=== PATIENT | male | born 1980 | race Caucasian/White ===

== ENCOUNTER → 2018-06-09 | Emergency (ER) | payer BC ==
[~2018-06-09] MED LIST: BUPIVACA 0.25%/EPI 0.0005% MDV 50 ML VIAL ONE; CEFTRIAXONE/SWI 1gm 1 GM/10 ML SYR ONE; FENTANYL CITR 100 MCG/2 ML ONE; GLYCOPYRROLATE 0.2 MG/ML SYR ONE; KETOROLAC 30 MG/ML INJ ONE; METRONIDAZOLE 500mg IVPB 500 MG/100 ML BAG IV ONE; MIDAZOLAM HCL 2 MG/2 ML INJ ONE; MORPHINE 4 MG/ML SYR ONE; NA CHLORIDE 0.9% 1,000 ML ONE; NEOSTIGMINE 1 MG/ML -5 ML SYRINGE ONE; ONDANSETRON 4 MG/2 ML VIAL ONE; PROPOFOL 200 MG/20 ML VIAL IV ONE; ROCURONIUM 50 MG/5 ML VIAL IV ONE; Ringers Lactate 1,000 ML IV ONE; SUCCINYLCHOLINE 20 MG/ML (10 ML) IV ONE
--- OUTSIDE RECORDS SUMMARY | 2018-06-09 10:04 | XMS REPORT ---
:1980 Author Organization e[employer]Works Care Team Providers Name Role Phone Brown, Na Provider Role Unavailable Allergies, Adverse Reactions, Alerts Substance Reaction Event Type N.K.D.A. Info Not Available Non Drug Allergy Problems Problem Type Condition Code Onset Dates Condition Status Assessment Anxiety F41.9 Active Assessment HTN (hypertension) I10 Active Assessment Acute gingival inflammation K05.00 Active Assessment Pure hypercholesterolemia E78.00 Active Problem Allergic rhinitis J30.9 Active Problem Anxiety F41.9 Active Problem Acute gingival inflammation K05.00 Active Problem Plantar fasciitis M72.2 Active Problem Pure hypercholesterolemia E78.00 Active Problem Vitamin D deficiency E55.9 Active Problem HTN (hypertension) I10 Active Medications Medication Code Code Instructions Start End Status Dosage System Date Date Zyrtec Allergy [facility] 71920588760 10 MG Orally Active 1 tablet Once a day ProAir HFA [facility] 27885085215 108 (90 Base) Active 2 puffs as MCG/ACT needed Inhalation every 6 hrs Citalopram [facility] 91475981025 20 MG Orally Active 1 tablet Hydrobromide Once a day Simvastatin ND 95065481454 20 MG Orally Active 1 tablet Once a day in the evening Lisinopril [facility] 26092583695 10 MG Orally Active 1 tablet Once a day Amoxicillin [facility] 37980496449 500 MG Orally Feb 04, Feb 14, Active 1 capsule every 12 hrs 2017 2017 Results No Known Results Summary Purpose eClinicalWorks Submission
[2018-06-09 10:48] LABS: Absolute Lymphocytes (CBC) 1.6 K/uL (0.7-4.9); Absolute Monocytes 0.8 K/uL (0.1-1.3); Absolute Neutrophil 9.2 K/uL (1.8-8.0); Basophils % 0.4 % (0-1.3); Eosinophils % 1.5 % (0-4.4); Hematocrit 41.6 % (39.6-49.0); Lymphocytes % 13.8 % (15.3-44.8); MPV 7.2 fL (7.6-11.3); Monocytes % 7.1 % (3.3-12.3); RBC Red Blood Cell Count 4.81 M/uL (4.33-5.43)
[2018-06-09 11:02] LABS: Bilirubin Direct 0.2 mg/dL (0-0.2); Bilirubin Total 0.8 mg/dL (0.2-1.0); Potassium 3.8 mmol/L (3.5-5.1); Protein, Total 7.6 g/dL (6.4-8.2)
--- NOTE | 2018-06-09 11:30 | RAD REPORT ---
EXAM DESCRIPTION: CT - Abdomen Pelvis W Contrast - 06/09/2018 11:14 am CLINICAL HISTORY: Lower abdominal pain, chills, possible appendicitis COMPARISON: July 2012 TECHNIQUE: Biphasic, helical CT imaging of the abdomen and pelvis was performed following 100 ml non -ionic IV contrast. Oral contrast was given. All CT scans are performed using dose optimization technique as appropriate and may include automated exposure control or mA/KV adjustment according to patient size. FINDINGS: No suspicious findings in the lung bases. The liver, spleen, and pancreas show no suspicious findings. Gallbladder and biliary tree are also wi thout suspicious finding. Liver attenuation borders on fatty infiltration. Symmetric renal function is seen with no hydronephrosis or suspicious renal mass. No pyelonephritis o r acute parenchymal process. No bladder abnormalities. No adrenal abnormalities. No gastric dilatation or gastric wall thickening. No small bowel abnormality. Moderate stool volume i s present throughout the colon. The appendix is abnormal at 11-12 mm in size. There is periappendiceal inflammatory stranding. A few small reactive lymph nodes are present in the right lower quadrant. No appendicolith. No abscess, isaiah e air or other complicating factor. The appendix is partially retrocecal. No free air, free fluid or inflammatory stranding. No mass or bulky lymphadenopathy. Patient has a very small umbilical hernia. No suspicious bony findings. Findings telephoned to the referring clinician 11:26 a.m. IMPRESSION: Acute appendicitis. The appendix is partially retrocecal. No abscess, free air or other complicating factor.
--- NOTE | 2018-06-09 11:31 | ER ---
Nurse's Notes [facility] Name: Selvin Burks Age: 37 yrs Sex: Male : 1980 Arrival Date: 06/09/2018 Time: 10:05 Bed 25 Private MD: Diagnosis: Acute appendicitis Presentation: 06/09 10:16 Presenting complaint: Patient states: lower abd pain and chills that began yesterday. aa5 Pt denies nausea, vomiting, and diarrhea. Pt reports being sent here by urgent care to r/o appendicitis. Transition of care: patient was not received from another setting of care. Onset of symptoms was May 2018. Risk Assessment: Do you want to hurt yourself or someone else? Patient reports no desire to harm self or others. Initial Sepsis Screen: Does the patient meet any 2 criteria? No. Patient's initial sepsis screen is negative. Does the patient have a suspected source of infection? No. Patient's initial sepsis screen is negative. Care prior to arrival: None. 10:16 Method Of Arrival: Ambulatory aa5 10:16 Acuity: CORIE 3 aa5 Historical: - Allergies: 10:18 NKA; aa5 - Home Meds: 10:18 citalopram 20 mg tab 1 tab once daily [Active]; lisinopril 10 mg Oral tab once daily aa5 [Active]; simvastatin 20 mg Oral tab 1 tab once daily [Active]; - PMHx: 10:18 Anxiety; Depression; Hyperlipidemia; Hypertension; aa5 - PSHx: 10:18 None; aa5 - Immunization history:: Flu vaccine is not up to date. - Social history:: Smoking status: Patient/guardian denies using tobacco, Patient/guardian denies using alcohol, street drugs, The patient lives with family. - Ebola Screening: : No symptoms or risks identified at this time. - Family history:: not pertinent. Screenin:25 Abuse screen: Denies threats or abuse. Denies injuries from another. Nutritional aj screening: No deficits noted. Tuberculosis screening: No symptoms or risk factors identified. Fall Risk None identified. Assessment: 11:25 General: Appears in no apparent distress. uncomfortable, Behavior is calm, cooperative, aj appropriate for age. Pain: Complains of pain in right lower quadrant. Neuro: Level of Consciousness is awake, alert, obeys commands, Oriented to person, place, time, situation, Appropriate for age. Respiratory: Airway is patent Respiratory effort is even, unlabored, Respiratory pattern is regular, symmetrical. GI: Abdomen is flat, non-distended, Bowel sounds present X 4 quads. Abdomen is tender to palpation in right lower quadrant. Derm: Skin is intact, is healthy with good turgor, Skin is pink, warm \T\ dry. normal. Vital Signs: 10:18 BP 135 / 87; Pulse 76; Resp 18 S; Temp 98.0(TE); Pulse Ox 100% on R/A; Weight 82.1 kg aa5 (R); Height 5 ft. 10 in. (177.80 cm) (R); Pain 7/10; 11:27 BP 139 / 89; Pulse 79; Resp 18; Pulse Ox 100% on R/A; aj 10:18 Body Mass Index 25.97 (82.10 kg, 177.80 cm) aa5 ED Course: 10:05 Patient arrived in ED. sb2 10:16 Arm band placed on. aa5 10:17 Triage completed. aa5 10:19 Daniel Lawson MD is Attending Physician. ma2 10:29 Stephie Light, RN is Primary Nurse. aj 10:34 Radiology exam delayed due to lab results not completed at this time. (BUN/Creatinine). kc3 10:41 Inserted saline lock: 20 gauge in left antecubital area, using aseptic technique. Blood ss collected. 11:11 CT completed. Patient tolerated procedure well. Patient moved to CT via wheelchair. kc3 Patient moved back from CT. 11:15 CT Abd/Pelvis - W/Contrast In Process Unspecified. EDMS 11:25 Patient has correct armband on for positive identification. Placed in gown. Bed in low aj position. Call light in reach. Side rails up X 1. Adult w/ patient. Pulse ox on. NIBP on. 11:30 Omar Gibson MD is Hospitalizing Provider. ma2 12:24 No provider procedures requiring assistance completed. Patient admitted, IV remains in aj place. intact. Administered Medications: 11:04 CANCELLED (Inappropriate at this time): no po contrast 1 application PO bolus aj 11:24 Drug: Zofran 4 mg Route: IVP; Site: left antecubital; aj 12:26 Follow up: Response: No adverse reaction aj 11:24 Drug: NS 0.9% 1000 ml Route: IV; Rate: 1 bolus; Site: left antecubital; aj 12: Follow up: Response: No adverse reaction; IV Status: Completed infusion; IV Intake: aj 1000ml 11:24 Drug: Rocephin 1 grams Route: IV; Rate: calculated rate; Site: left antecubital; aj 12:26 Follow up: Response: No adverse reaction; IV Status: Completed infusion; IV Intake: 10mlaj 11:24 Drug: Flagyl 500 mg Volume: 100 ml; Route: IVPB; Rate: 200 ml/hr; Infused Over: 30 aj mins; Site: left antecubital; 12:25 Follow up: Response: No adverse reaction; IV Status: Completed infusion; IV Intake: aj 100ml 11:25 Drug: morphine 4 mg Route: IVP; Site: left antecubital; aj 12:28 Follow up: Response: No adverse reaction aj 12:25 Not Given (patient taken to OR prior to admin): Dextrose 5 % in 1/2 Normal Saline with aj KCl 10 mEq/L 39485 ml IV at 120 ml/hr continuous 12:25 Not Given (patient taken to OR prior to admin): TORadol 30 mg IVP once aj Intake: 12:25 IV: 100ml; Total: 100ml. aj 12: IV: 10ml; Total: 110ml. aj 12:26 IV: 1000ml; Total: 1110ml. aj Outcome: 11:31 Decision to Hospitalize by Provider. [facility] 12:24 Admitted to OR accompanied by nurse, family with patient, via stretcher, with chart. aj 12:24 Condition: good 12:32 Patient left the ED. aj Signatures: Dispatcher [employer] EDStephie Henderson RN RN aj Calderon, Audri RN Heather Lozada RN RN ss Alzahri, Mohammad, MD MD ma2 Campbell, Kim kc3 Zahra Esparza
--- NOTE | 2018-06-09 11:31 | EDPHYS ---
Physician Documentation [facility] Name: Selvin Burks Age: 37 yrs Sex: Male : 1980 Arrival Date: 06/09/2018 Time: 10:05 Bed 25 Private MD: ED Physician Daniel Lawson HPI: 06/09 10:26 This 37 yrs old Male presents to ER via Ambulatory with complaints of ma2 Abdominal Pain. 10:26 The patient presents with abdominal pain. Onset: The symptoms/episode began/occurred ma2 gradually, 2 day(s) ago. The symptoms do not radiate. Associated signs and symptoms: Pertinent negatives: nausea and vomiting, blood in stools, chest pain, dysuria, vomiting. Severity of pain: At its worst the pain was moderate. The patient has not experienced similar symptoms in the past. Historical: - Allergies: 10:18 NKA; aa5 - Home Meds: 10:18 citalopram 20 mg tab 1 tab once daily [Active]; lisinopril 10 mg Oral tab once daily aa5 [Active]; simvastatin 20 mg Oral tab 1 tab once daily [Active]; - PMHx: 10:18 Anxiety; Depression; Hyperlipidemia; Hypertension; aa5 - PSHx: 10:18 None; aa5 - Immunization history:: Flu vaccine is not up to date. - Social history:: Smoking status: Patient/guardian denies using tobacco, Patient/guardian denies using alcohol, street drugs, The patient lives with family. - Ebola Screening: : No symptoms or risks identified at this time. - Family history:: not pertinent. ROS: 10:26 Constitutional: Negative for fever, chills, and weight loss, Neck: Negative for injury, ma2 pain, and swelling, Cardiovascular: Negative for chest pain, palpitations, and edema, Respiratory: Negative for shortness of breath, cough, wheezing, and pleuritic chest pain, Back: Negative for injury and pain, : Negative for injury, bleeding, discharge, and swelling, MS/Extremity: Negative for injury and deformity. 10:26 Abdomen/GI: Positive for abdominal pain, Negative for nausea and vomiting, nausea, vomiting, and diarrhea, vomiting. 10:26 All other systems are negative. ma2 Exam: 10:26 Constitutional: This is a well developed, well nourished patient who is awake, alert, ma2 and in no acute distress. Chest/axilla: Normal chest wall appearance and motion. Nontender with no deformity. No lesions are appreciated. Cardiovascular: Regular rate and rhythm with a normal S1 and S2. No gallops, murmurs, or rubs. Normal PMI, no JVD. No pulse deficits. Respiratory: Lungs have equal breath sounds bilaterally, clear to auscultation and percussion. No rales, rhonchi or wheezes noted. No increased work of breathing, no retractions or nasal flaring. 10:26 Abdomen/GI: Palpation: moderate abdominal tenderness, rlq, Hernia: not appreciated. Vital Signs: 10:18 BP 135 / 87; Pulse 76; Resp 18 S; Temp 98.0(TE); Pulse Ox 100% on R/A; Weight 82.1 kg aa5 (R); Height 5 ft. 10 in. (177.80 cm) (R); Pain 7/10; 11:27 BP 139 / 89; Pulse 79; Resp 18; Pulse Ox 100% on R/A; aj 10:18 Body Mass Index 25.97 (82.10 kg, 177.80 cm) aa5 MDM: 10:19 Patient medically screened. sd2 10:26 Differential diagnosis: appendicitis, diverticulitis, gastritis, gastroesophageal ma2 reflux disease, pancreatitis. 11:29 Data reviewed: vital signs, nurses notes. Counseling: I had a detailed discussion with ma2 the patient and/or guardian regarding: the historical points, exam findings, and any diagnostic results supporting the discharge/admit diagnosis, the presence of at least one elevated blood pressure reading (>120/80) during this emergency department visit, the need for further work-up and treatment in the hospital. ED course: has appendicitis discussed with dr. farley . 06/09 10:25 Order name: Basic Metabolic Panel; Complete Time: 11:17 ma2 06/09 10:25 Order name: CBC with Diff; Complete Time: 11: sd2 06/09 10:25 Order name: Creatinine for Radiology; Complete Time: 11:17 ma2 06/09 10:25 Order name: Hepatic Function; Complete Time: 11:17 sd2 06/09 10:25 Order name: Lipase; Complete Time: 11: sd2 06/09 10:25 Order name: CT Abd/Pelvis - W/Contrast; Complete Time: 11:32 ma2 06/09 10:25 Order name: IV Saline Lock; Complete Time: 10:41 ma2 06/09 10:25 Order name: Labs collected and sent; Complete Time: 10:41 ma2 06/09 10:25 Order name: NPO; Complete Time: 10:41 ma2 Administered Medications: 11:04 CANCELLED (Inappropriate at this time): no po contrast 1 application PO bolus aj 11:24 Drug: Zofran 4 mg Route: IVP; Site: left antecubital; aj 12:26 Follow up: Response: No adverse reaction aj 11:24 Drug: NS 0.9% 1000 ml Route: IV; Rate: 1 bolus; Site: left antecubital; aj 12: Follow up: Response: No adverse reaction; IV Status: Completed infusion; IV Intake: aj 1000ml 11:24 Drug: Rocephin 1 grams Route: IV; Rate: calculated rate; Site: left antecubital; aj 12: Follow up: Response: No adverse reaction; IV Status: Completed infusion; IV Intake: 10mlaj 11:24 Drug: Flagyl 500 mg Volume: 100 ml; Route: IVPB; Rate: 200 ml/hr; Infused Over: 30 aj mins; Site: left antecubital; 12:25 Follow up: Response: No adverse reaction; IV Status: Completed infusion; IV Intake: aj 100ml 11:25 Drug: morphine 4 mg Route: IVP; Site: left antecubital; aj 12:28 Follow up: Response: No adverse reaction aj 12:25 Not Given (patient taken to OR prior to admin): Dextrose 5 % in 1/2 Normal Saline with aj KCl 10 mEq/L 99716 ml IV at 120 ml/hr continuous 12:25 Not Given (patient taken to OR prior to admin): TORadol 30 mg IVP once aj Disposition: 06/09/18 11:31 Hospitalization ordered by Omar Farley for Inpatient Admission. Preliminary diagnosis is Acute appendicitis. - Bed requested for Operating Room. - Status is Inpatient Admission. aj - Condition is Stable. - Problem is new. - Symptoms are unchanged. UTI on Admission? No Signatures: Dispatcher [employer] Ericka Bal RN RN dw Myers, Amanda, RN RN aj Calderon, Audri, RN RN aa5 Daniel Lawson MD MD ma2 Corrections: (The following items were deleted from the chart) 11:04 10:28 no po contrast 1 application PO bolus ordered. ma2 aj 11:51 11:31 Hospitalization Ordered by Omar Farley MD for Inpatient Admission. Preliminary dw diagnosis is Acute appendicitis. Bed requested for Telemetry/MedSurg (observation). Status is Inpatient Admission. Condition is Stable. Problem is new. Symptoms are unchanged. UTI on Admission? No. ma2 12:32 11:51 06/09/2018 11:31 Hospitalization Ordered by Omar Farley MD for Inpatient aj Admission. Preliminary diagnosis is Acute appendicitis. Bed requested for Operating Room. Status is Inpatient Admission. Condition is Stable. Problem is new. Symptoms are unchanged. UTI on Admission? No. dw
--- NOTE | 2018-06-09 12:34 | HP ---
Date of Admission: 06/09/2018 Brief History Of Present Illness: The patient is a 37-year-old male, who [facility] with approximately 1-day history of periumbilical now right lower quadrant abdominal pain associa adelita with some nausea, no vomiting. He had significant worsening of symptoms that became sharp stabbi ng in the right lower quadrant consistent with acute appendicitis. He came to Urgent Care who lady rodriguez worked him up and sent him over to the emergency room with concerns of acute appendicitis. He h as never had similar episodes before in the past. No change in bowel or bladder habits. Past Medical History: Significant for anxiety, hypertension, hyperlipidemia. Past Surgical History: Negative. Home Medications: Include citalopram, lisinopril, simvastatin. He also takes Claritin on occasion. Social History: He denies smoking, alcohol, or recreational drug use. 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 Review of Systems: A 10-point review of systems other than HPI, denies. Physical Examination: General: At the time of my examination, he is awake, alert, and oriented. Psychiatric: He is appropriately conversive. HEENT: Normocephalic. Sclerae icteric. Mucous membranes are moist. Oropharynx is clear. Neck: Supple. No JVD. Chest: Normal expansion and excursion. Cardiovascular: Regular rate and rhythm. Pulmonary: Clear to auscultation bilaterally. Abdomen: Soft with positive right lower quadrant focal peritonitis and peritoneal signs consistent w ith acute appendicitis. He has guarding and rebound at this area. Extremities: No clubbing, cyanosis, or edema. Skin: Warm and dry. Laboratory Data: Reveals a white blood count of 11.9, hemoglobin 14.6, hematocrit 41.6, platelet cou nt is 218, neutrophils are 77.2%. Sodium 138, potassium 3.8, chloride 103, carbon dioxide 30, BUN 10 , creatinine 1.02, glucose is 97, total bilirubin 0.8, direct component 0.2. AST 18, ALT 37, alkalin e phosphatase is 61. Lipase 118. He had a CT scan performed of the abdomen and pelvis officially re ad as acute appendicitis. The appendix was partially retrocecal. No abscess, free air, or other com plicating factors. The appendix is abnormal at 11 to 12 mm in size. There is periappendiceal inflam matory stranding. He has small reactive nodes present in the right lower quadrant. No appendicolith . No abscess, free air, or other complicating factors. Assessment And Plan: This is a 37-year-old male, who presents with signs and symptoms of acute appen dicitis. 1.IV fluid hydration. 2.Antibiotic coverage. 3.I explained the risks, benefits, and alternatives of laparoscopic possible open appendectomy inclu ding but not limited to bleeding, infection, damage to surrounding tissue, and need for further opera tive procedures. The patient agrees to proceed as indicated. PARDEEP/JINA Voice ID: [id number]
--- NOTE | 2018-06-09 13:36 | P.OP ---
Preoperative diagnosis: Acute Appendicitis Postoperative diagnosis: Acute Appendicitis Primary procedure: Laparoscopic Appendectomy Anesthesia: GETA + Local Estimated blood loss: <2cc Specimen: Vermiform Appendix Findings: Acute non-perforated appendicitis Complications: None Transferred to: Recovery Room Condition: Good
[2018-06-09 15:48] VITALS: BP 119/70; TEMP 98.2; O2SAT 97
--- NOTE | 2018-06-09 23:47 | OP ---
Date of Procedure: 06/09/2018 Surgeon: Adelita Gibson MD, Preoperative Diagnosis: Acute appendicitis. Postoperative Diagnosis: Acute appendicitis. Procedure Performed: Laparoscopic appendectomy. Anesthesia: General endotracheal plus local with 0.25% Marcaine. Estimated Blood Loss: Less than 2 cc. Specimen: Vermiform appendix. Findings: Acute nonperforated appendicitis. Complications: None. Disposition: Transferred to recovery room in good condition. Procedure In Detail: After informed consent was obtained, the patient brought to the operating room, prepped and draped in the usual sterile fashion. After adequate anesthesia was achieved, infraumbil ical area was anesthetized with 0.25% Marcaine, sharply incised and a 5-mm trocar was introduced into the abdomen without evidence of complication. Insufflation was obtained to 15 mmHg this time. The area was inspected. There was no injury to any vital structures upon examination. Additional trocar site was chosen in the suprapubic region. This was similarly anesthetized, sharply incised and a 5- mm trocar was introduced into the abdomen without evidence of complication under direct visualization . The umbilical trocar was then up-sized to a 12-mm under direct visualization without evidence of a ny complication. Additional trocar site was chosen in the left lower quadrant, similarly anesthetize d, sharply incised and a 5-mm trocar was introduced into the abdomen without any evidence of complica tion. The patient was positioned into head down, right side up position. Ratcheted grasper was used to grasp the patient's appendix, was found to be in a retrocecal position and nonperforated. There w ere some suppurative changes to this however and this was grasped, elevated and a mesoappendiceal win danielito was created with a [place] retractor at the base of the appendix at the confluence of the cecum. After a mesoappendiceal window was created, an Endo CATHY-35 blue load was fired across the base of t he appendix with good approximation of tissues. The LigaSure device was then used to take the mesoap pendix down without any evidence of complication. The appendix was then placed in EndoCatch bag, rem brandie through umbilical trocar. Re-insufflation was obtained at this time. The area was inspected fo r hemostasis which was achieved. This time, the area was copiously irrigated multiple times until co mpletely clear and suctioned completely dry. Staple line was inspected and found to be in good anato melissa position without any leakage. There were no additional hemostatic maneuvers required at this raisa e. The patient was positioned in neutral position. The area was copiously irrigated one last time a nd suctioned out dry and the umbilical trocar was then removed. The umbilical trocar site was closed using a Piotr-Jose suture passer with 0 Vicryl in interrupted fashion with good approximation o f tissues. The abdomen was inspected one last time and there was a small umbilical hernia evident as well as a left lower quadrant inguinal hernia appreciated this time but these were both minimal with no contents at this time. After completely decompressing the abdomen under direct visualization wit hout evidence of complication, all trocars were then removed and skin incisions were copiously irriga adelita and closed with a 4-0 Monocryl in a running fashion. Dermabond was placed over top. The patient tolerated the procedure well without evidence of complication and transferred to PACU in good condit ion. All counts were correct at the end of the case. PARDEEP/JINA Voice ID: [id number] Report ID: [id number]
== END | disposition home or self-care (01) ==
LOC: ER 10:02
PROC: 0DTJ4ZZ Resection of Appendix, Percutaneous Endoscopic Approach (ICD-10-PCS; principal; 2018-06-09 12:30)
DX: K35.80 Unspecified acute appendicitis (principal); I10 Essential (primary) hypertension; F32.9 Major depressive disorder, single episode, unspecified; F41.9 Anxiety disorder, unspecified; E78.5 Hyperlipidemia, unspecified
CPT/HCPCS: 36415; 74177; 80048; 80076; 83690; 85025; 88304; 96365; 96368; 96375; 99285; J0330; J0696; J2250; J2405; J2704; J2710; J3010; J7030; Q9967

== ENCOUNTER 2018-12-06 22:56 | Emergency (ER) | payer BC ==
--- OUTSIDE RECORDS SUMMARY | 2018-12-06 22:59 | XMS REPORT ---
[...] Status Dosage System Date Date Zyrtec Allergy [facility] 90174000561 10 MG Orally Active 1 tablet Once a day ProAir HFA [facility] 53827097696 108 (90 Base) Active 2 puffs as MCG/ACT needed Inhalation every 6 hrs Citalopram [facility] 24969057113 20 MG Orally Active 1 tablet Hydrobromide Once a day Simvastatin ND 83369726554 20 MG Orally Active 1 tablet Once a day in the evening Lisinopril [facility] 21299530534 10 MG Orally Active 1 tablet Once a day Amoxicillin [facility] 54947642174 500 MG Orally Feb 04, Feb 14, Active 1 capsule every 12 hrs 2017 2017 Results No Known Results Summary Purpose eClinicalWorks Submission
--- OUTSIDE RECORDS SUMMARY | 2018-12-06 22:59 | XMS REPORT ---
:1980 Author Organization eClinicalWorks Care Team Providers Name Role Phone Trace Judith Provider Role Unavailable Allergies, Adverse Reactions, Alerts Substance Reaction Event Type N.K.D.A. Info Not Available Non Drug Allergy Problems Problem Type Condition Code Onset Dates Condition Status Assessment Lower abdominal pain R10.30 Active Problem Allergic rhinitis J30.9 Active Problem Anxiety F41.9 Active Problem Acute gingival inflammation K05.00 Active Problem Pure hypercholesterolemia E78.00 Active Problem Vitamin D deficiency E55.9 Active Problem HTN (hypertension) I10 Active Medications Medication Code Code Instructions Start End Status Dosage System Date Date Lisinopril [facility] 24332431029 10 MG Orally Active 1 tablet Once a day Citalopram [facility] 31177357961 20 MG Orally Active 1 tablet Hydrobromide Once a day ProAir HFA [facility] 42121807631 108 (90 Base) Active 2 puffs as MCG/ACT needed Inhalation every 6 hrs Zyrtec Allergy [facility] 01830204496 10 MG Orally Active 1 tablet Once a day Simvastatin [facility] 28138723012 20 MG Orally Active 1 tablet Once a day in the evening Claritin [facility] [address]-44 Active not defined Results No Known Results Summary Purpose eClinicalWorks Submission
--- OUTSIDE RECORDS SUMMARY | 2018-12-06 22:59 | XMS REPORT ---
:1980 Author Organization eClinicalWorks Care Team Providers Name Role Phone Omar Gibson Provider Role Unavailable Allergies No Known Allergies Problems Problem Type Condition Code Onset Dates Condition Status Problem Allergic rhinitis J30.9 Active Problem Anxiety F41.9 Active Problem Acute gingival inflammation K05.00 Active Problem Pure hypercholesterolemia E78.00 Active Problem Vitamin D deficiency E55.9 Active Problem HTN (hypertension) I10 Active Medications No Known Medications Results No Known Results Summary Purpose eClinicalWorks Submission
--- OUTSIDE RECORDS SUMMARY | 2018-12-06 23:00 | XMS REPORT ---
:1980 Author Organization eClinicalWorks Care Team Providers Name Role Phone Trace Judith Provider Role Unavailable Allergies, Adverse Reactions, Alerts Substance Reaction Event Type N.K.D.A. Info Not Available Non Drug Allergy Problems Problem Type Condition Code Onset Dates Condition Status Assessment Acute recurrent maxillary sinusitis J01.01 Active Problem Acute gingival inflammation K05.00 Active Problem Allergic rhinitis J30.9 Active Problem Asthma, unspecified asthma J45.909 Active severity, unspecified whether complicated, unspecified whether persistent Problem HTN (hypertension) I10 Active Problem Pure hypercholesterolemia E78.00 Active Problem Anxiety F41.9 Active Problem Vitamin D deficiency E55.9 Active Medications Medication Code Code Instructions Start End Status Dosage System Date Date Flonase [facility] 65672557379 50 MCG/ACT September Active 2 sprays Nasally Once a 2018 each day nostril prn Loratadine [facility] 69034434923 10 MG Orally September Active 1 tablet Once a day 2018 Lisinopril [facility] 60353853560 10 MG Orally Active 1 tablet Once a day ProAir HFA [facility] 32350420995 108 (90 Base) Active 2 puffs as MCG/ACT needed Inhalation every 6 hrs Doxycycline [facility] 72088046455 100 mg Orally September Active 1 capsule Hyclate BID 2018 Simvastatin [facility] 84268667765 20 MG Orally Active 1 tablet Once a day in the evening Citalopram [facility] 62133436364 20 MG Orally Active 1 tablet Hydrobromide Once a day Results Name Result Date Reference Range Unit Abnormality Flag FLU TEST A ----A Negative [id number] ----B Negative [id number] Summary Purpose eClinicalWorks Submission
--- OUTSIDE RECORDS SUMMARY | 2018-12-06 23:00 | XMS REPORT ---
:1980 Author Organization eClinicalWorks Care Team Providers Name Role Phone Omar Gibson Provider Role Unavailable Allergies, Adverse Reactions, Alerts Substance Reaction Event Type N.K.D.A. Info Not Available Non Drug Allergy Problems Problem Type Condition Code Onset Dates Condition Status Assessment Acute appendicitis with localized K35.3 Active peritonitis Problem Allergic rhinitis J30.9 Active Problem Anxiety F41.9 Active Problem Acute gingival inflammation K05.00 Active Problem Pure hypercholesterolemia E78.00 Active Problem Vitamin D deficiency E55.9 Active Problem HTN (hypertension) I10 Active Medications Medication Code Code Instructions Start End Status Dosage System Date Date Zyrtec Allergy [facility] 43561375047 10 MG Orally Active 1 tablet Once a day ProAir HFA [facility] 37592903449 108 (90 Base) Active 2 puffs as MCG/ACT needed Inhalation every 6 hrs Citalopram [facility] 60074572962 20 MG Orally Active 1 tablet Hydrobromide Once a day Lisinopril [facility] 07780340814 10 MG Orally Active 1 tablet Once a day Simvastatin [facility] 99350601464 20 MG Orally Active 1 tablet Once a day in the evening Claritin [facility] [address]-73 Active not defined Results No Known Results Summary Purpose eClinicalWorks Submission
--- OUTSIDE RECORDS SUMMARY | 2018-12-06 23:00 | XMS REPORT ---
:1980 Author Organization eClinicalWorks Care Team Providers Name Role Phone Brown, Na Provider Role Unavailable Allergies, Adverse Reactions, Alerts Substance Reaction Event Type N.K.D.A. Info Not Available Non Drug Allergy Problems Problem Type Condition Code Onset Dates Condition Status Assessment Anxiety F41.9 Active Assessment HTN (hypertension) I10 Active Assessment Pure hypercholesterolemia E78.00 Active Assessment Other specified bacterial agents as B96.89 Active the cause of diseases classified elsewhere Assessment Seasonal allergic rhinitis, J30.2 Active unspecified trigger Assessment Acute sinusitis, unspecified J01.90 Active Problem Allergic rhinitis J30.9 Active Problem Anxiety F41.9 Active Problem Acute gingival inflammation K05.00 Active Problem Pure hypercholesterolemia E78.00 Active Problem Vitamin D deficiency E55.9 Active Problem HTN (hypertension) I10 Active Medications Medication Code Code Instructions Start End Status Dosage System Date Date Simvastatin [facility] 90309182953 20 MG Orally Active 1 tablet Once a day in the evening Lisinopril [facility] 65306573931 10 MG Orally Active 1 tablet Once a day Lisinopril [facility] 11798475780 10 MG Orally Active 1 tablet Once a day Zyrtec Allergy [facility] 64609236229 10 MG Orally Active 1 tablet Once a day Augmentin [facility] 56097812243 875-125 MG August Active 1 tablet Orally every 12 2018 hrs Citalopram [facility] 81652555441 20 MG Orally Active 1 tablet Hydrobromide Once a day Simvastatin [facility] 71508078372 20 MG Orally Active 1 tablet Once a day in the evening ProAir HFA [facility] 08102157553 108 (90 Base) Active 2 puffs as MCG/ACT needed Inhalation every 6 hrs Claritin [facility] [address]-34 Active not defined Loratadine [facility] 42990648006 10 MG Orally September Active 1 tablet Once a day 2018 Citalopram [facility] 37055207990 20 MG Orally Active 1 tablet Hydrobromide Once a day Augmentin [facility] 34843331365 875-125 MG September Active 1 tablet Orally every 12 2018 hrs Results No Known Results Summary Purpose eClinicalWorks Submission
--- OUTSIDE RECORDS SUMMARY | 2018-12-06 23:00 | XMS REPORT ---
:1980 Author Organization eClinicalWorks Care Team Providers Name Role Judith Carrion Provider Role Unavailable Allergies, Adverse Reactions, Alerts Substance Reaction Event Type N.K.D.A. Info Not Available Non Drug Allergy Problems Problem Type Condition Code Onset Dates Condition Status Assessment Pharyngitis, unspecified etiology J02.9 Active Problem Allergic rhinitis J30.9 Active Problem Anxiety F41.9 Active Problem Acute gingival inflammation K05.00 Active Problem Pure hypercholesterolemia E78.00 Active Problem Vitamin D deficiency E55.9 Active Problem HTN (hypertension) I10 Active Medications Medication Code Code Instructions Start End Status Dosage System Date Date Augmentin [facility] 41376145042 875-125 MG August Active 1 tablet Orally every 2018 hrs Citalopram [facility] 97984036437 20 MG Orally Active 1 tablet Hydrobromide Once a day Claritin [facility] [address]-11 Active not defined ProAir HFA [facility] 30156181292 108 (90 Base) Active 2 puffs as MCG/ACT needed Inhalation every 6 hrs Zyrtec Allergy [facility] 76505670805 10 MG Orally Active 1 tablet Once a day Simvastatin [facility] 38408179187 20 MG Orally Active 1 tablet Once a day in the evening Lisinopril [facility] 61499821300 10 MG Orally Active 1 tablet Once a day Results No Known Results Summary Purpose eClinicalWorks Submission
--- NOTE | 2018-12-07 00:12 | EDPHYS ---
Physician Documentation [facility] Name: Selvin Burks Age: 38 yrs Sex: Male : 1980 Arrival Date: 12/06/2018 Time: 22:59 Bed 24 Private MD: ED Physician Erick Sommer HPI: 12/07 00:08 This 38 yrs old Male presents to ER via Ambulatory with complaints of Animal cp Bite. 00:08 The patient was bitten on the back, by a dog, while trying to stop animals from cp fighting, at apartment complex. Onset: The symptoms/episode began/occurred just prior to arrival. Animal information: Animal control has been notified. Secondary to the bite the patient reports multiple lacerations, that are superficial. Associated signs and symptoms: Pertinent positives: swelling at site, tenderness. Severity of symptoms: in the emergency department the symptoms are unchanged. Historical: - Allergies: 12/06 23:24 NKA; aa1 - Home Meds: 23:24 citalopram 20 mg tab 1 tab once daily [Active]; lisinopril 10 mg Oral tab once daily aa1 [Active]; simvastatin 20 mg Oral tab 1 tab once daily [Active]; - PMHx: 23:24 Anxiety; Depression; Hyperlipidemia; Hypertension; aa1 - PSHx: 23:24 Appendectomy; aa1 - Immunization history:: Last tetanus immunization: unknown. - Social history:: Smoking status: Patient/guardian denies using tobacco. - Ebola Screening: : No symptoms or risks identified at this time. ROS: 12/07 00:09 Constitutional: Negative for fever, poor PO intake. cp 00:09 Cardiovascular: Negative for chest pain. cp 00:09 Respiratory: Negative for cough, shortness of breath, wheezing. 00:09 Abdomen/GI: Negative for abdominal pain, nausea, vomiting, and diarrhea. 00:09 Skin: Positive for of the back, dog bite. 00:09 All other systems are negative. Exam: 00:10 Constitutional: The patient appears in no acute distress, alert, awake, well developed, cp well nourished. 00:10 Head/Face: Normocephalic, atraumatic. cp 00:10 Cardiovascular: Rate: normal. 00:10 Respiratory: the patient does not display signs of respiratory distress, Respirations: normal, no use of accessory muscles. 00:10 Abdomen/GI: Exam negative for discomfort, distension, guarding, Inspection: abdomen appears normal. 00:10 Skin: injury, bite(s), superficial, linear, of the right mid back, multiple, that can be described as no foreign body, with mild bleeding. Vital Signs: 12/06 23:06 BP 136 / 98 LA Supine (auto/reg); Pulse 80; Temp 98.3(O); Pulse Ox 98% on R/A; Weight jp3 77.11 kg; Height 5 ft. 10 in. (177.80 cm); Pain 7/10; 12/07 00:28 BP 121 / 94; Pulse 77; Resp 17 S; Temp 98(O); Pulse Ox 98% on R/A; ca1 12/06 23:06 Body Mass Index 24.39 (77.11 kg, 177.80 cm) jp3 MDM: 12/06 23:27 Patient medically screened. cp 12/07 00:09 Differential diagnosis: superficial laceration, rabies, cellulitis. Data reviewed: vital signs, nurses notes, and as a result, I will discharge patient. Counseling: I had a detailed discussion with the patient and/or guardian regarding: the historical points, exam findings, and any diagnostic results supporting the discharge/admit diagnosis, the need for outpatient follow up, formerly [facility], later [facility], to return to the emergency department if symptoms worsen or persist or if there are any questions or concerns that arise at home. Response to treatment: the patient's symptoms have markedly improved after treatment, and as a result, I will discharge patient. 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 Exp: ca1 08/14/2020. Lot #: [id number]. } Route: IM; Site: right deltoid; 00:43 Follow up: Response: No adverse reaction ca1 00:15 Drug: Augmentin 875 mg Route: PO; ca1 00:42 Follow up: Response: No adverse reaction ca1 Disposition: 01:00 Chart complete. cp 03:14 Co-signature as Attending Physician, Erick Sommer MD. pkl Disposition: 12/07/18 00:11 Discharged to Home. Impression: Bitten by dog - back. - Condition is Stable. - Discharge Instructions: Animal Bite. - Prescriptions for Augmentin 875- 125 mg Oral Tablet - take 1 tablet by ORAL route every 12 hours for 10 days; 20 tablet. - Medication Reconciliation Form, Thank You Letter, Antibiotic Education, Prescription Opioid Use form. - Follow up: Private Physician; When: 2 - 3 days; Reason: Wound Recheck. - Problem is new. - Symptoms have improved. Signatures: Livier Loya RN RN aa1 Erick Sommer MD MD pkl Alban Hardwick PA PA cp Eleanor Sandoval RN RN ca1 Corrections: (The following items were deleted from the chart) 00:43 00:11 12/07/2018 00:11 Discharged to Home. Impression: Bitten by dog - back. Condition ca1 is Stable. Forms are Medication Reconciliation Form, Thank You Letter, Antibiotic Education, Prescription Opioid Use. Follow up: Private Physician; When: 2 - 3 days; Reason: Wound Recheck. Problem is new. Symptoms have improved. cp
--- NOTE | 2018-12-07 00:12 | ER ---
Nurse's Notes [facility] Name: Selvin Burks Age: 38 yrs Sex: Male : 1980 Arrival Date: 12/06/2018 Time: 22:59 Bed 24 Private MD: Diagnosis: Bitten by dog-back Presentation: 12/06 23:13 Presenting complaint: Patient states: he got out of his car with his dog at his [facility] apartment complex and a large dog ran up to him and tried to attack his dog and when he went to pick his dog up the other dog bit him on the back. Bite-like abrasion noted to back with bruising present. Animal control notified at this time and reports officer will come to ED to interview pt. Transition of care: patient was not received from another setting of care. Onset of symptoms was December 06, 2018. Risk Assessment: Do you want to hurt yourself or someone else? Patient reports no desire to harm self or others. Initial Sepsis Screen: Does the patient meet any 2 criteria? No. Patient's initial sepsis screen is negative. Does the patient have a suspected source of infection? Yes: Skin breakdown/wound. Care prior to arrival: None. 23:13 Method Of Arrival: Ambulatory aa1 23:13 Acuity: CORIE 4 aa1 Triage Assessment: 23:13 Bite description: bite sustained to right mid back is superficial, from animal, by a aa1 dog, animal information: Appearance: appeared well, vaccination(s) is unknown, Animal control has been notified. General: Appears in no apparent distress. comfortable, Behavior is calm, cooperative, appropriate for age. Pain: Complains of pain in back. Historical: - Allergies: 23:24 NKA; aa1 - Home Meds: 23:24 citalopram 20 mg tab 1 tab once daily [Active]; lisinopril 10 mg Oral tab once daily aa1 [Active]; simvastatin 20 mg Oral tab 1 tab once daily [Active]; - PMHx: 23:24 Anxiety; Depression; Hyperlipidemia; Hypertension; aa1 - PSHx: 23:24 Appendectomy; aa1 - Immunization history:: Last tetanus immunization: unknown. - Social history:: Smoking status: Patient/guardian denies using tobacco. - Ebola Screening: : No symptoms or risks identified at this time. Screenin:26 Abuse screen: Denies threats or abuse. Denies injuries from another. Nutritional ca1 screening: No deficits noted. Tuberculosis screening: No symptoms or risk factors identified. Fall Risk None identified. Assessment: 23:26 General: Appears in no apparent distress. comfortable, Behavior is calm, cooperative, ca1 appropriate for age. Pain: Complains of pain in back and right mid back Pain currently is 5 out of 10 on a pain scale. Neuro: Level of Consciousness is awake, alert, obeys commands, Oriented to person, place, time, situation. Cardiovascular: Heart tones S1 S2 present Capillary refill < 3 seconds Patient's skin is warm and dry. Respiratory: Airway is patent Respiratory effort is even, unlabored, Respiratory pattern is regular, symmetrical, Breath sounds are clear bilaterally. GI: No deficits noted. No signs and/or symptoms were reported involving the gastrointestinal system. : No deficits noted. No signs and/or symptoms were reported regarding the genitourinary system. EENT: No deficits noted. No signs and/or symptoms were reported regarding the EENT system. Derm: Skin is healthy with good turgor, Skin is pink, warm \T\ dry. Musculoskeletal: Circulation, motion, and sensation intact. Capillary refill < 3 seconds, Range of motion: intact in all extremities. Injury Description: Abrasion sustained to right mid back is scabbed, was sustained less than 30 minutes ago. 12/07 00:28 Reassessment: Patient appears in no apparent distress at this time. Patient is alert, ca1 oriented x 3, equal unlabored respirations, skin warm/dry/pink. Applied Triple Ointment to the wound and covered with gauze. Vital Signs: 12/06 23:06 BP 136 / 98 LA Supine (auto/reg); Pulse 80; Temp 98.3(O); Pulse Ox 98% on R/A; Weight jp3 77.11 kg; Height 5 ft. 10 in. (177.80 cm); Pain 7/10; 12/07 00:28 BP 121 / 94; Pulse 77; Resp 17 S; Temp 98(O); Pulse Ox 98% on R/A; ca1 12/06 23:06 Body Mass Index 24.39 (77.11 kg, 177.80 cm) jp3 ED Course: 12/06 22:59 Patient arrived in ED. am2 23:11 Placed in gown. Bed in low position. Call light in reach. Pillow given. Verbal jp3 reassurance given. Turned patient laying on belly. Pulse ox on. NIBP on. 23:11 Patient maintains SpO2 saturation greater than 95% on room air. jp3 23:13 Arm band placed on right wrist. aa1 23:22 Triage completed. aa1 23:23 Eleanor Sandoval RN is Primary Nurse. ca1 23:26 Alban Hardwick PA is PHCP. cp 23:26 No provider procedures requiring assistance completed. ca1 23:27 Erick Sommer MD is Attending Physician. cp 23:30 Wound care: to Dog bite located on right mid back was cleaned with Hibiclens, debrided jp3 using Betadine scrub, irrigated with normal saline, covered with dry gauze till provider views wound Patient tolerated well. 12/07 00:29 Patient did not have IV access during this emergency room visit. 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 Exp: ca1 08/14/2020. Lot #: [id number]. } Route: IM; Site: right deltoid; 00:43 Follow up: Response: No adverse reaction ca1 00:15 Drug: Augmentin 875 mg Route: PO; ca1 00:42 Follow up: Response: No adverse reaction ca1 Outcome: 00:11 Discharge ordered by MD. cp 00:29 Discharged to home ambulatory, with family. ca1 00:29 Condition: stable 00:29 Discharge instructions given to patient, Instructed on discharge instructions, follow up and referral plans. medication usage, wound care, Demonstrated understanding of instructions, follow-up care, medications, wound care, Prescriptions given X 1. 00:43 Patient left the ED. ca1 Signatures: Livier Loya RN RN aa1 Alban Hardwick PA PA cp Stephie Neil am2 Louis Velazquez jp3 Eleanor Sandoval RN RN ca1
[2018-12-07] MEDS ORDERED: AMOX/K CLAV 875 MG TAB ONE (00:33)
[2018-12-07] MEDS ORDERED: TETANUS & DIPHTHERIA TOX,ADULT 0.5 ML VIAL ONE (00:33)
[2018-12-07 01:46] VITALS: O2SAT 98
[2018-12-07 01:48] VITALS: BP 121/94; TEMP 98
== END 2018-12-07 00:43 | disposition home or self-care (01) ==
LOC: ER 22:56
DX: S20.479A Other superficial bite of unspecified back wall of thorax, initial encounter (principal); W54.0XXA Bitten by dog, initial encounter; Y93.89 Activity, other specified; Y92.039 Unspecified place in apartment as the place of occurrence of the external cause; I10 Essential (primary) hypertension; E78.5 Hyperlipidemia, unspecified; F41.9 Anxiety disorder, unspecified; F32.9 Major depressive disorder, single episode, unspecified
CPT/HCPCS: 90471; 90714; 99284

== ENCOUNTER 2019-12-03 01:55 | Emergency (ER) | payer SELFPAY, OTHER ==
--- OUTSIDE RECORDS SUMMARY | 2019-12-03 01:58 | XMS REPORT | Continuity of Care Document ---
:1980 Author Organization [facility] Address [address] [place] [address] Care Team Providers Name Role Phone Unavailable Unavailable Unavailable Problems Condition Condition Condition Status Onset Resolution Last Treating Co mments Source Name Details Category Date Date Treatment Clinician Date Anxiety Anxiety Problem [facility] HTN HTN Diagnosis Active [facility]hypertens (hypertens Kate kes - ion) ion) [facility] Acute Acute Problem Active [facility] gingival gingival [facility] - inflammati inflammati Me moria on on l [facility] Pure Pure Diagnosis Active [facility] hyperchole hyperchole Kate kes - sterolemia sterolemia Me moria l [facility] Allergic Allergic Problem [facility] Vitamin D Vitamin D Problem Active [facility] deficiency deficiency Kate kes - [facility] Asthma, Asthma, Problem Active [facility] unspecifie unspecifie Kate kes - d asthma d asthma Memori a severity, severity, l unspecifie unspecifie Ou tpati d whether d whether ent complicate complicate Cl inics d, d, unspecifie unspecifie d whether d whether persistent persistent Seasonal Seasonal Problem [facility] - rhinitis, rhinitis, Gennaro travon unspecifie unspecifie l d trigger d trigger Outp ati ent Clinics Adult Adult Problem Active [facility] general general [facility] medical medical Memoria examinatio examinatio l n n [facility] Allergies, Adverse Reactions, Alerts This patient has no known allergies or adverse reactions. Medications Ordered Filled Start Stop Current Ordering Indication Dosage Frequency Signature Comments Components Source Medication Medication Date Date Medication? Clinician (SIG) Name Name Lisinopril Lisinopril Yes Na Brown [address] [facility] Simvastatin Simvastatin Yes Na Brown [address] [facility] Citalopram Citalopram Yes Na Brown [address] [facility] Hydrobromid Hydrobromid L ukes - e e [facility] Immunizations Ordered Filled Immunization Date Status Comments Sour e Immunization Name Name Leonardo - Flucoraliax - 2019-03-[address] [facility] - multidose vial multidose vial 00:00:00 [facility] Td Td 2018-12-[address] [facility] - 00:[facility]00 [facility] Procedures This patient has no known procedures. Encounters Start End Encounter Admission Attending Care Care Encounter Source Date/Time Date/Time Type Type Clinicians Facility Department ID 2019-11-12 2019-11-12 Outpatient [facility] [place] [id number] [facility] [address] 16:40:00 16:40:00 [facility] Medicine Outpati ent Clinics 2019-03-23 2019-03-23 [facility] [place] [id number] [facility] 13[facility]00:00 13:00:00 [facility] Medicine Outpati ent Clinics 2018-12-19 2018-12-19 [facility] [place] [id number] 13:00:00 13:00:00 [facility] Medicine Medicine Outpati ent Clinics 2018-10-09 2018-10-09 [facility] [place] [place] [id number] 14:15:00 14:15:00 t Urgent Urgent Care L [facility] Outpati ent Clinics 2018-09-18 2018-09-18 [facility] [place] [id number] [facility] 15:00:00 15:00:00 t [facility] Medicine Medicine Outpati ent Clinics 2018-09-13 2018-09-13 [facility] [place] [id number] 16:12:00 16:12:00 t [facility] Medicine Medicine Outpati ent Clinics 2018-09-07 2018-09-07 [facility] [place] [id number] 12:00:00 12:00:00 t Urgent Urgent Care L [facility] - Care [facility] Outpati ent Clinics 2018-06-24 2018-06-24 [facility] [place] [id number] 15:15:00 15:15:00 t Specialty/U Kate kes - Specialty rology [facility] a /Urology Clinic l [facility] 2018-06-11 2018-06-11 [facility] [id number] [address] 14:02:00 14:02:00 t Specialty/U Kate kes - Specialty rology [facility] a /Urology Clinic l [facility] 2018-06-09 2018-06-09 [facility] [place] [id number] [address] 09:45:00 09:45:00 t Urgent Urgent Care L [facility] 2018-02-04 2018-02-04 [facility] [place] [id number] 11:45:00 11:45:00 t [facility]24 [facility] Family Medicine [facility] Results This patient has no known results.
--- OUTSIDE RECORDS SUMMARY | 2019-12-03 01:58 | XMS REPORT ---
:1980 Author Organization [employer] Care Team Providers Name Role Phone Brown, Na Provider Role Unavailable Allergies No Known Allergies Problems Problem Type Condition Code Onset Dates Condition Statu s Problem HTN (hypertension) I10 Active Problem Pure hypercholesterolemia E78.00 Ac tive Assessment Pure hypercholesterolemia E78.00 Ac tive Assessment HTN (hypertension) I10 Active Problem Seasonal allergic rhinitis, J30.2 Active unspecified trigger Problem Adult general medical examination Z00.00 Active Problem Asthma, unspecified asthma J45.909 A ctive severity, unspecified whether complicated, unspecified whether persistent Problem Anxiety F41.9 Active Problem Vitamin D deficiency E55.9 Active Problem Acute gingival inflammation K05.00 Active Problem Allergic rhinitis J30.9 Active Medications No Known Medications Results No Known Results Summary Purpose [employer] Submission
[2019-12-03] MEDS ORDERED: cloNIDine HCL 0.1 MG TAB ONE (02:26)
[2019-12-03] MEDS ORDERED: NA CHLORIDE 0.9% 1,000 ML ONE (02:26)
[2019-12-03 03:02] LABS: Absolute Lymphocytes (CBC) 3.4 K/uL (0.7-4.9); Basophils % 0.9 % (0-1.3); Hematocrit 43.8 % (39.6-49.0); Lymphocytes % 42.8 % (15.3-44.8); MPV 7.4 fL (7.6-11.3); RBC Red Blood Cell Count 5.05 M/uL (4.33-5.43)
[2019-12-03 03:30] LABS: BUN Blood Urea Nitrogen 10 mg/dL (7-18); Bicarbonate 29 mmol/L (21-32); Glucose Level 92 mg/dL (74-106); Sodium Level 141 mmol/L (136-145); Troponin (Emerg Dept Use Only) < 0.02 ng/mL (0.0-0.045)
[2019-12-03 03:35] LABS: Potassium 3.5 mmol/L (3.5-5.1)
--- NOTE | 2019-12-03 04:24 | EDPHYS ---
Physician Documentation [facility] Name: Selvin Burks Age: 39 yrs Sex: Male : 1980 Arrival Date: 12/03/2019 Time: 01:56 Bed 5 Private MD: ED Physician Marek Frost HPI: 12/02 02:24 This 39 yrs old Male presents to ER via Ambulatory with complaints of High rn Blood Pressure. 02:24 The patient has elevated blood pressure and discovered this at home. Onset: The rn symptoms/episode began/occurred at an unknown time. Modifying factors:. Severity of symptoms: At its worst the blood pressure was moderate, in the emergency department the blood pressure is unchanged. The patient has experienced similar episodes in the past. Reports hx of HTN, but for last week has been feeling malaise, headache, congestion, loss of sense of smell/taste, was exposed to someone who tested + for COVID, he has bene tested 2 days ago but results not back yet. Reports roommate with similar symptoms as well, but is wondering if his high blood pressure making his symptoms worse. No sob. + mild cough.. Historical: - Allergies: 02:11 NKA; lp1 - Home Meds: 02:11 simvastatin 20 mg Oral tab 1 tab once daily [Active]; citalopram 20 mg tab 1 tab once lp1 daily [Active]; lisinopril 10 mg Oral tab once daily [Active]; - PMHx: 02:11 Anxiety; Depression; Hyperlipidemia; Hypertension; lp1 - PSHx: 02:11 Appendectomy; lp1 - Immunization history:: Adult Immunizations up to date. - Social history:: Smoking status: Patient denies any tobacco usage or history of. - Family history:: not pertinent. - Hospitalizations: : No recent hospitalization is reported. ROS: 02:24 Constitutional: Negative for chills, and weight loss, Eyes: Negative for injury, pain, rn redness, and discharge, ENT: + congestion Neck: Negative for injury, pain, and swelling, Cardiovascular: Negative for chest pain, palpitations, and edema, Respiratory: Negative for shortness of breath, wheezing, and pleuritic chest pain, Abdomen/GI: Negative for abdominal pain, nausea, vomiting, diarrhea, and constipation, Back: Negative for injury and pain, MS/Extremity: Negative for injury and deformity, Skin: Negative for injury, rash, and discoloration, Neuro: Negative for numbness, tingling, and seizure. Exam: 02:24 Constitutional: This is a well developed, well nourished patient who is awake, alert, rn and in no acute distress. Appears tired/flu-like. Head/Face: Normocephalic, atraumatic. Eyes: Pupils equal round and reactive to light, extra-ocular motions intact. Lids and lashes normal. Conjunctiva and sclera are non-icteric and not injected. Cornea within normal limits. Periorbital areas with no swelling, redness, or edema. Neck: Trachea midline, no thyromegaly or masses palpated, and no cervical lymphadenopathy. Supple, full range of motion without nuchal rigidity, or vertebral point tenderness. No Meningismus. Cardiovascular: Regular rate and rhythm. No pulse deficits. Respiratory: Speaking full sentences. No increased work of breathing, no retractions or nasal flaring. Abdomen/GI: soft, non-tender Skin: Warm, dry MS/ Extremity: Pulses equal, no cyanosis. Neurovascular intact. Full, normal range of motion. Equal circumference. Neuro: Awake and alert, GCS 15, oriented to person, place, time, and situation. Cranial nerves II-XII grossly intact. Motor strength 5/5 in all extremities. Sensory grossly intact. Cerebellar exam normal. Vital Signs: 02:07 Weight 81.65 kg (R); Height 5 ft. 10 in. (177.80 cm); Pain 9/10; lp1 02:13 BP 153 / 116; Pulse 67; Temp 97.7; Pulse Ox 100% on R/A; tt3 03:59 BP 155 / 106; Pulse 72; Resp 18 S; Pulse Ox 100% on R/A; jd3 02:07 Body Mass Index 25.83 (81.65 kg, 177.80 cm) lp1 MDM: 01:59 Patient medically screened. rn 04:20 Differential diagnosis: hypertensive crisis, Malignant HTN, [place], COVID. Data reviewed: rn vital signs, nurses notes, lab test result(s), EKG, radiologic studies, CT scan, and as a result, I will discharge patient. Counseling: I had a detailed discussion with the patient and/or guardian regarding: the historical points, exam findings, and any diagnostic results supporting the discharge/admit diagnosis, lab results, radiology results, the need for outpatient follow up, to return to the emergency department if symptoms worsen or persist or if there are any questions or concerns that arise at home. Response to treatment: the patient's symptoms have mildly improved after treatment, and as a result, I will discharge patient. Special discussion: I discussed with the patient/guardian in detail that at this point there is no indication for admission to the hospital. It is understood, however, that if the symptoms persist or worsen the patient needs to return immediately for re-evaluation. 04:23 ED course: Pt very likely has COVID as well, recommend isolation/quarantine, and should rn be getting result soon from his Saturday test. . 12/02 02:50 Order name: Basic Metabolic Panel EDPA 12/02 02:50 Order name: Troponin (Emerg Dept Use Only) EDPA 12/02 02:15 Order name: IV Start; Complete Time: 02:43 rn 12/02 02:15 Order name: EKG; Complete Time: 08:24 rn 12/02 02:25 Order name: Head Brain Wo Cont EDPA 12/02 02:50 Order name: [place] Screen EDPA 12/02 02:50 Order name: CBC with Automated Diff; Complete Time: 03:37 EDPA 12/02 02:15 Order name: EKG - Nurse/Tech; Complete Time: 02:43 rn Administered Medications: 02:43 Drug: NS 0.9% 1000 ml Route: IV; Rate: 1000 ml; Site: left antecubital; jd3 03:40 Follow up: Response: No adverse reaction; IV Status: Completed infusion; IV Intake: jd3 1000ml 02:43 Drug: cloNIDine 0.2 mg Route: PO; jd3 03:40 Follow up: Response: No adverse reaction jd3 Disposition: 12/03/19 04:22 Discharged to Home. Impression: Hypertension, Infectious mononucleosis, unspecified. - Condition is Stable. - Discharge Instructions: Hypertension, Infectious Mononucleosis. - Medication Reconciliation Form, Thank You Letter, Antibiotic Education, Prescription Opioid Use form. - Follow up: Private Physician; When: As needed; Reason: Recheck today's complaints, Re-evaluation by your physician. - Problem is an ongoing problem. - Symptoms have improved. Signatures: Dispatcher [employer] EDMarek Llamas MD MD rn Short, Yuliya, RN RN lp1 Zachary Padron RN RN jd3 Corrections: (The following items were deleted from the chart) 04:38 04:22 12/03/2019 04:22 Discharged to Home. Impression: Hypertension; Infectious jd3 mononucleosis, unspecified. Condition is Stable. Forms are Medication Reconciliation Form, Thank You Letter, Antibiotic Education, Prescription Opioid Use. Follow up: Private Physician; When: As needed; Reason: Recheck today's complaints, Re-evaluation by your physician. Problem is an ongoing problem. Symptoms have improved. rn
--- NOTE | 2019-12-03 04:24 | ER ---
Nurse's Notes [facility] Name: Selvin Burks Age: 39 yrs Sex: Male : 1980 Arrival Date: 12/03/2019 Time: 01:56 Bed 5 Private MD: Diagnosis: Hypertension;Infectious mononucleosis, unspecified Presentation: 12/02 02:07 Chief complaint: Patient states: States having allergy symptoms, COVID tested on lp1 Saturday, results pending; States taking Claritin OTC the past couple days; patient states recently learned that blood pressure can get worse when taking Claritin, has had headache that won't go away, reports BP of 153/101 at home. Coronavirus screen: Patient reports a cough. Patient denies shortness of breath or difficulty breathing. Patient denies measured and/or subjective temperature greater than 100.4F prior to today's visit. Patient denies travel on a cruise ship or to a country the [facility] currently lists as an affected area. Prior COVID test collected on: 11/30/19. Ebola Screen: No symptoms or risks identified at this time. Risk Assessment: Do you want to hurt yourself or someone else? Patient reports no desire to harm self or others. Onset of symptoms was December 03, 2019. 02:07 Method Of Arrival: Ambulatory lp1 02:07 Acuity: CORIE 3 lp1 02:19 Initial Sepsis Screen: Does the patient meet any 2 criteria? No. Patient's initial jd3 sepsis screen is negative. Does the patient have a suspected source of infection? No. Patient's initial sepsis screen is negative. Historical: - Allergies: 02:11 NKA; lp1 - Home Meds: 02:11 simvastatin 20 mg Oral tab 1 tab once daily [Active]; citalopram 20 mg tab 1 tab once lp1 daily [Active]; lisinopril 10 mg Oral tab once daily [Active]; - PMHx: 02:11 Anxiety; Depression; Hyperlipidemia; Hypertension; lp1 - PSHx: 02:11 Appendectomy; lp1 - Immunization history:: Adult Immunizations up to date. - Social history:: Smoking status: Patient denies any tobacco usage or history of. - Family history:: not pertinent. - Hospitalizations: : No recent hospitalization is reported. Screenin:12 Abuse screen: Denies threats or abuse. Denies injuries from another. Nutritional lp1 screening: No deficits noted. Tuberculosis screening: No symptoms or risk factors identified. Fall Risk None identified. Assessment: 02:15 General: Appears in no apparent distress. uncomfortable, Behavior is calm, cooperative, jd3 appropriate for age. Pain: Complains of pain in head Quality of pain is described as aching, pressure. Neuro: Level of Consciousness is awake, alert, obeys commands, Oriented to person, place, time, situation, Reports headache. Cardiovascular: Denies Capillary refill < 3 seconds Patient's skin is warm and dry. Respiratory: Reports shortness of breath at rest cough that is non-productive, persistent Airway is patent Respiratory effort is even, unlabored, Respiratory pattern is regular, symmetrical. GI: No signs and/or symptoms were reported involving the gastrointestinal system. Abdomen is round non-distended, Abd is soft and non tender X 4 quads. Patient currently denies abdominal pain. : No signs and/or symptoms were reported regarding the genitourinary system. EENT: Reports nasal congestion. Derm: Skin is intact, Skin is dry, Skin is normal, Skin temperature is warm. Musculoskeletal: Circulation, motion, and sensation intact. Range of motion: intact in all extremities. 03:58 Reassessment: Patient appears in no apparent distress at this time. No changes from jd3 previously documented assessment. Patient and/or family updated on plan of care and expected duration. Pain level reassessed. Patient is alert, oriented x 3, equal unlabored respirations, skin warm/dry/pink. 04:35 Reassessment: Patient appears in no apparent distress at this time. Patient and/or jd3 family updated on plan of care and expected duration. Pain level reassessed. Patient is alert, oriented x 3, equal unlabored respirations, skin warm/dry/pink. Vital Signs: 02:07 Weight 81.65 kg (R); Height 5 ft. 10 in. (177.80 cm); Pain 9/10; lp1 02:13 BP 153 / 116; Pulse 67; Temp 97.7; Pulse Ox 100% on R/A; tt3 03:59 BP 155 / 106; Pulse 72; Resp 18 S; Pulse Ox 100% on R/A; jd3 02:07 Body Mass Index 25.83 (81.65 kg, 177.80 cm) lp1 ED Course: 01:56 Patient arrived in ED. ds1 01:59 Marek Frost MD is Attending Physician. rn 02:02 Zachary Padron, BALTAZAR is Primary Nurse. jd3 02:11 Triage completed. lp1 02:11 Arm band placed on. lp1 02:19 Patient has correct armband on for positive identification. Bed in low position. Call jd3 light in reach. Side rails up X 1. retail customer service specialist on. Pulse ox on. NIBP on. 02:43 Inserted saline lock: 20 gauge in left antecubital area, using aseptic technique. Blood jd3 collected. 03:59 Head Brain Wo Cont In Process Unspecified. EDMS 04:35 No provider procedures requiring assistance completed. IV discontinued, intact, jd3 bleeding controlled, No redness/swelling at site. Pressure dressing applied. Administered Medications: 02:43 Drug: NS 0.9% 1000 ml Route: IV; Rate: 1000 ml; Site: left antecubital; jd3 03:40 Follow up: Response: No adverse reaction; IV Status: Completed infusion; IV Intake: jd3 1000ml 02:43 Drug: cloNIDine 0.2 mg Route: PO; jd3 03:40 Follow up: Response: No adverse reaction jd3 Intake: 03:40 IV: 1000ml; Total: 1000ml. jd3 Outcome: 04:22 Discharge ordered by . rn 04:35 Discharged to home ambulatory, with family. jd3 04:35 Condition: stable 04:35 Discharge instructions given to patient, Instructed on discharge instructions, follow up and referral plans. Demonstrated understanding of instructions, follow-up care. 04:38 Patient left the ED. jd3 Signatures: Dispatcher [employer] EDWY Elva Oleary ds1 Marek Frost MD MD rn Pena, Laura, RN RN lp1 Zachary Padron, BALTAZAR LEDESMA jd3 Herb Mckeon tt3 Corrections: (The following items were deleted from the chart) 02:12 02:07 Coronavirus screen: Proceed with normal triage. lp1 lp1
[2019-12-03 04:48] VITALS: TEMP 97.7; O2SAT 100
[2019-12-03 04:49] VITALS: BP 155/106
--- NOTE | 2019-12-03 10:33 | RAD REPORT ---
EXAM DESCRIPTION: Head Brain Wo Cont CLINICAL HISTORY: ELEVATED BLOOD PRESSURE COMPARISON: None Available. TECHNIQUE: Multiple helical axial tomographic images were obtained of the head without intravenous c ontrast. This exam was performed according to our departmental dose-optimization program, which inclu mirza automated exposure control, adjustment of the mA and/or kV according to patient size and/or use o f iterative reconstruction technique. FINDINGS: There is no acute intracranial hemorrhage. No mass. No midline shift. No ventriculomegaly. Dahl-white matter differentiation is maintained. Paranasal sinuses are clear. Mastoid air cells and middle ear spaces are clear. Orbits and orbital co ntents are unremarkable. Osseous structures are unremarkable. Surrounding soft tissues are unremarkable. IMPRESSION: No acute intracranial process. Electronically signed by: Andre Jensen MD 12/03/2019 3:56 AM CDT Due to temporary technical issues with the PACS/Fluency reporting system, reports are being signed by the in house radiologist without review as a courtesy to ensure prompt reporting. The interpreting r adiologist is fully responsible for the content of the report.
--- NOTE | 2019-12-04 06:40 | EKG ---
Test Date: 2019-12-03 Test Time: 02:27:54 Shuttler Car: [place] MEASUREMENT RESULTS: Intervals: Rate: 71 PA: 204 QRSD: 92 QT: 376 QTc: 408 [place]: P: 70 PA: 204 QRS: 27 T: 17 INTERPRETIVE STATEMENTS: Normal sinus rhythm Possible Anterior infarct, age undetermined Abnormal ECG Compared to ECG 09/01/2016 11:41:41 Myocardial infarct finding now present Electronically Signed On 12-04-19 06:38:27 CDT by Mike Woodall
== END 2019-12-03 04:38 | disposition home or self-care (01) ==
LOC: ER 01:55
DX: B27.90 Infectious mononucleosis, unspecified without complication (principal); I10 Essential (primary) hypertension; E78.5 Hyperlipidemia, unspecified; F34.1 Dysthymic disorder
CPT/HCPCS: 36415; 70450; 80048; 84484; 85025; 86308; 93005; 96360; 99284; J7030

== ENCOUNTER 2020-06-16 17:23 | Emergency (ER) | payer BC, OTHER, SELFPAY ==
--- OUTSIDE RECORDS SUMMARY | 2020-06-16 17:26 | XMS REPORT | Continuity of Care Document ---
:1980 Author Organization [facility] Address [address] [place] [address] Care Team Providers Name Role Phone Unavailable Unavailable Unavailable Problems Condition Condition Condition Status Onset Resolution Last Treating Co mments Source Name Details Category Date Date Treatment Clinician Date Anxiety An[facility] Diagnosis [facility] HTN HTN Diagnosis Active [facility]hypert[facility] (hypertens Kate kes - ion) ion) [facility] Acute Acute Problem Active [facility] gingival gingival [facility] - inflammati inflammati Me moria on on l [facility] Pure Pure Diagnosis Active [facility] hyperchole hyperchole Kate kes - sterolemia sterolemia Me moria l [facility] Allergic Allergic Problem [facility] Vitamin D Vitamin D Problem Active [facility] deficiency deficiency [facility] Asthma, Asthma, Problem Active [facility] unspecifie unspecifie Kate kes - d asthma d asthma Memori a severity, severity, l unspecifie unspecifie Ou tpati d whether d whether ent complicate complicate Cl inics d, d, unspecifie unspecifie d whether d whether persistent persistent Seasonal Seasonal Diagnosis Active [facility] allergic allergic [facility] - rhinitis, rhinitis, Gennaro travon unspecifie unspecifie l d trigger d trigger Outp ati ent Clinics Adult Adult Problem Active [facility] general general [facility] examinatio examinatio l n n Outpati ent Clinics Infectious Infectious Diagnosis Active [facility] mononucleo mononucleo Kate kes - sis sis Memoria without without l complicati complicati Ou tpati on, on, ent infectious infectious Cl inics mononucleo mononucleo sis due to sis due to unspecifie unspecifie d organism d organism Allergies, Adverse Reactions, Alerts This patient has no known allergies or adverse reactions. Medications Ordered Filled Start Stop Current Ordering Indication Dosage Frequency Signature Comments Components Source Medication Medication Date Date Medication? Clinician (SIG) Name Name Doxycycline Doxycycline Yes Na Brown [address] [facility] Hyclate Hyclate 4-25 [facility] - 00:00: Memoria 00 l [facility] Flonase Flonase Yes Na Brown [address] [facility] 4-25 each [facility]ukes - 00:00: nostril Memoria 00 prn l [facility] Lisinopril Lisinopril Yes Na Brown [address] [facility] Simvastatin Simvastatin Yes Na Brown [address] [facility] in the [facility] - evening [facility] Augmentin Augmentin Yes Na Brown [address] [facility] ProAir HFA ProAir HFA Yes Na Brown [address] [facility] needed [facility] - [facility] Citalopram Citalopram Yes Na Brown TAKE ONE [facility] Hydrobromid Hydrobromid TABLET BY Lukes - e e MOUTH Memoria DAILY l [facility] Loratadine Loratadine Yes Na Brown [address] [facility] Lisinopril Lisinopril Yes Na Brown TAKE ONE [facility] TABLET BY [facility] - MOUTH Memoria DAILY l [facility] Citalopram Citalopram Yes Na Brown [address] [facility] Hydrobromid Hydrobromid L ukes - e e Memoria [facility] Simvastatin Simvastatin Yes Na Brown [address] [facility] in the [facility] - evening [facility] Zocor Zocor Yes Na Brown TAKE ONE [facility] TABLET BY Lukes - MOUTH Memoria EVERY l EVENING [facility] Immunizations Ordered Filled Immunization Date Status Comments Sour e Immunization Name Name Flucelvax - Flucelvax - 2019-03-[address] [facility] - multidose vial multidose vial 00:00:[address] [facility] Outpatient [facility] Td Td 2018-12-[address] [facility] - 00[facility]00 [facility] Procedures This patient has no known procedures. Encounters Start End Encounter Admission Attending Care Care Encounter Source Date/Time Date/Time Type Type Clinicians Facility Department ID 2019-12-08 2019-12-08 [facility] [id number] [facility] 11:20:00 11:20:00 t [facility] Medicine Medicine Outpati ent Clinics 2019-11-12 2019-11-12 [facility] [id number] [facility] 16:40:00 16:40:00 t [facility] l Medicine Outpati ent Clinics 2019-03-23 2019-03-23 [facility] [id number] [facility] 13:00:00 13:00:00 t [facility] Medicine l Medicine Outpati ent Clinics 2018-12-19 2018-12-19 [facility] [id number] 13:00:00 13:00:00 t [facility] Medicine l Medicine Outpati ent Clinics 2018-10-09 2018-10-09 [facility] [id number] [facility] 14:15:00 14:15:00 t [facility] 2018-09-18 2018-09-18 [facility] [id number] [facility] 15:00:00 15:00:00 t [facility] Medicine Medicine Outpati ent Clinics 2018-09-13 2018-09-13 [facility] [id number] 16:12:00 16:12:00 t [facility] 2018-09-07 2018-09-07 [facility] [id number] 12:00:00 12:00:00 t Urgent Urgent Care [facility] Clinic l Outpati ent Clinics 2018-06-24 2018-06-24 [facility] [id number] 15:15:00 15:15:00 t Specialty/U Kate kes - Specialty rology Memori a /Urology Clinic l Clinic Outpati ent Clinics 2018-06-11 2018-06-11 [facility] [id number] [facility] 14:02:00 14:02:00 t Specialty/U Kate kes - Specialty rology Memori a /Urology Clinic l Clinic Outpati ent Clinics 2018-06-09 2018-06-09 Outpatient [facility] [id number] [address] 09:45:00 09:45:00 t Urgent Urgent Care L [facility] 2018-02-04 2018-02-04 Outpatient [facility] [id number] 11[facility]45:00 11:45:00 t [facility] ent Clinics Results This patient has no known results.
[2020-06-16 19:19] LABS: ALT/SGPT 32 U/L (12-78); AST/SGOT 14 U/L (15-37); Albumin 3.9 g/dL (3.4-5.0); Alkaline Phosphatase 63 U/L (45-117); BUN Blood Urea Nitrogen 11 mg/dL (7-18); Bicarbonate 27 mmol/L (21-32); Bilirubin Direct 0.1 mg/dL (0-0.2); Bilirubin Total 0.5 mg/dL (0.2-1.0); Glucose Level 87 mg/dL (74-106); Lipase 154 U/L (73-393); Potassium 3.7 mmol/L (3.5-5.1); Protein, Total 7.6 g/dL (6.4-8.2); Sodium Level 142 mmol/L (136-145)
[2020-06-16 19:21] LABS: Absolute Lymphocytes (CBC) 1.2 K/uL (0.7-4.9); Basophils % 0.5 % (0-1.3); Hematocrit 41.8 % (39.6-49.0); Lymphocytes % 22.9 % (15.3-44.8); MPV 6.8 fL (7.6-11.3); RBC Red Blood Cell Count 4.86 M/uL (4.33-5.43)
--- NOTE | 2020-06-16 19:35 | ER ---
Nurse's Notes [facility] Name: Selvin Burks Age: 40 yrs Sex: Male : 1980 Arrival Date: 06/16/2020 Time: 17:28 Bed 15 Private MD: Diagnosis: Other abdominal pain-cramps Presentation: 06/16 17:31 Chief complaint: Patient states: Tested positive for Covid-19 on the 09 of June. ca1 I have stomach discomforts and took some Pepto. I started having black stools on Saturday. Coronavirus screen: Client denies travel out of the [place] in the last 14 days. Client presents with at least one sign or symptom that may indicate coronavirus-19. Standard/surgical mask placed on the client. Provider contacted for isolation considerations. Client reports previous positive COVID test result. Date of collection: June 09, 2020. Ebola Screen: Patient negative for fever greater than or equal to 101.5 degrees Fahrenheit, and additional compatible Ebola Virus Disease symptoms Patient denies exposure to infectious person. Patient denies travel to an Ebola-affected area in the 21 days before illness onset. No symptoms or risks identified at this time. Initial Sepsis Screen: Does the patient meet any 2 criteria? No. Patient's initial sepsis screen is negative. Does the patient have a suspected source of infection? No. Patient's initial sepsis screen is negative. Risk Assessment: Do you want to hurt yourself or someone else? Patient reports no desire to harm self or others. Onset of symptoms was June 16, 2020. 17:31 Method Of Arrival: Ambulatory ca1 17:31 Acuity: CORIE 3 ca1 Historical: - Allergies: 17:34 NKA; ca1 - PMHx: 17:34 Anxiety; Depression; Hyperlipidemia; Hypertension; ca1 - PSHx: 17:34 Appendectomy; ca1 - Immunization history:: Adult Immunizations up to date, Flu vaccine is not up to date. - Social history:: Smoking status: Patient denies any tobacco usage or history of. Screenin:00 Abuse screen: Denies threats or abuse. Denies injuries from another. Nutritional zb screening: No deficits noted. Tuberculosis screening: No symptoms or risk factors identified. Fall Risk None identified. Assessment: 18:00 General: Appears in no apparent distress. comfortable, Behavior is calm, cooperative, zb appropriate for age. Pain: Complains of pain in right upper quadrant and left upper quadrant Pain does not radiate. Pain currently is 2 out of 10 on a pain scale. Quality of pain is described as crampy, Pain began 2-3 days ago. Is intermittent. Neuro: Level of Consciousness is awake, alert, obeys commands, Oriented to person, place, time, situation. Cardiovascular: Heart tones S1 S2 present Capillary refill < 3 seconds in bilateral fingers Patient's skin is warm and dry. Respiratory: Airway is patent Respiratory effort is even, unlabored, Respiratory pattern is regular, symmetrical, Breath sounds are clear bilaterally. GI: Abdomen is round non-distended, Last BM was June 16, 2020. Bowel sounds present X 4 quads. Abd is soft and non tender X 4 quads. Reports bloating, cramping, dark and mucus like stools. : No signs and/or symptoms were reported regarding the genitourinary system. EENT: No signs and/or symptoms were reported regarding the EENT system. Derm: Skin is intact, is healthy with good turgor, Skin is normal, Skin temperature is warm. Musculoskeletal: Circulation, motion, and sensation intact. Capillary refill < 3 seconds, in bilateral fingers. Range of motion: intact in all extremities. 19:00 Reassessment: Patient appears in no apparent distress at this time. Patient and/or zb family updated on plan of care and expected duration. Pain level reassessed. Patient is alert, oriented x 3, equal unlabored respirations, skin warm/dry/pink. family at bedside. no c/o of pain at this time. 19:51 Reassessment: pt d/c. gait steady. issues at this time. even and steady gait. zb Vital Signs: 17:31 BP 145 / 90; Pulse 74; Resp 16 S; Temp 97.8(TE); Pulse Ox 98% on R/A; Weight 81.65 kg ca1 (R); Height 5 ft. 10 in. (177.80 cm) (R); 18:00 BP 131 / 96; Pulse 88; Resp 18; Pulse Ox 99% on R/A; zb 19:00 BP 125 / 92; Pulse 57; Resp 18; Pulse Ox 100% on R/A; zb 17:31 Body Mass Index 25.83 (81.65 kg, 177.80 cm) ca1 ED Course: 17:28 Patient arrived in ED. ca1 17:28 Sofía Burr FNP-C [facility]. kb 17:28 Alban Carrillo MD is Attending Physician. kb 17:34 Triage completed. ca1 17:34 Arm band placed on right wrist. ca1 17:51 Ciara Romero, RN is Primary Nurse. zb 18:00 Patient has correct armband on for positive identification. Placed in gown. Call light zb in reach. Side rails up X 1. Adult w/ patient. Door closed. Noise minimized. Warm blanket given. 18:00 Inserted saline lock: 20 gauge in right antecubital area, using aseptic technique. zb 19:53 IV discontinued, intact, bleeding controlled, No redness/swelling at site. Pressure zb dressing applied. 19:53 No provider procedures requiring assistance completed. zb Administered Medications: 19:50 Drug: Bentyl 20 mg Route: PO; zb 19:51 Follow up: Response: Medication administered at discharge. zb 19:50 Drug: Zofran (Ondansetron) 4 mg Route: IVP; Site: right antecubital; zb 19:51 Follow up: Response: Medication administered at discharge. zb Outcome: 19:35 Discharge ordered by . kb 19:53 Discharged to home ambulatory, with friend. zb 19:53 Condition: stable 19:53 Discharge instructions given to patient, Instructed on discharge instructions, follow up and referral plans. medication usage, Demonstrated understanding of instructions, follow-up care, medications, Prescriptions given X 2. 19:53 Patient left the ED. zb Signatures: Sofía Burr FNP-C FNP-Eleanor Mclaughlin RN RN ca1 Ciara Romero RN RN zshadi
--- NOTE | 2020-06-16 19:35 | EDPHYS ---
Physician Documentation [facility] Name: Selvin Burks Age: 40 yrs Sex: Male : 1980 Arrival Date: 06/16/2020 Time: 17:28 Bed 15 Private MD: ED Physician Alban Carrillo HPI: 06/16 19:44 This 40 yrs old Male presents to ER via Ambulatory with complaints of Covid kb +, Black/Tarry Stools, Abdominal Pain. 19:44 The patient presents with abdominal pain that is diffuse. Onset: The symptoms/episode kb began/occurred 5 day(s) ago. The symptoms do not radiate. Associated signs and symptoms: Pertinent positives: cramping, dark stool, Pertinent negatives: nausea, vomiting, and diarrhea. The symptoms are described as crampy. Modifying factors: The symptoms are alleviated by nothing, the symptoms are aggravated by nothing. Severity of pain: At its worst the pain was moderate in the emergency department the pain is unchanged. The patient has not experienced similar symptoms in the past. The patient has not recently seen a physician. Pt reports he has COVID, was positive last week. States he has had abd cramping so he took some pepto and since starting that he has had dark stool. . Historical: - Allergies: 17:34 NKA; ca1 - PMHx: 17:34 Anxiety; Depression; Hyperlipidemia; Hypertension; ca1 - PSHx: 17:34 Appendectomy; ca1 - Immunization history:: Adult Immunizations up to date, Flu vaccine is not up to date. - Social history:: Smoking status: Patient denies any tobacco usage or history of. ROS: 19:43 Constitutional: Negative for fever, chills, and weight loss, Cardiovascular: Negative kb for chest pain, palpitations, and edema, Respiratory: Negative for shortness of breath, cough, wheezing, and pleuritic chest pain, Back: Negative for injury and pain, : Negative for injury, bleeding, discharge, and swelling, MS/Extremity: Negative for injury and deformity, Skin: Negative for injury, rash, and discoloration, Neuro: Negative for headache, weakness, numbness, tingling, and seizure. 19:43 Abdomen/GI: Positive for abdominal cramps, black/tarry stool. Exam: 19:42 Constitutional: This is a well developed, well nourished patient who is awake, alert, kb and in no acute distress. Head/Face: Normocephalic, atraumatic. Chest/axilla: Normal chest wall appearance and motion. Nontender with no deformity. No lesions are appreciated. Cardiovascular: Regular rate and rhythm with a normal S1 and S2. No gallops, murmurs, or rubs. Normal PMI, no JVD. No pulse deficits. Respiratory: Lungs have equal breath sounds bilaterally, clear to auscultation and percussion. No rales, rhonchi or wheezes noted. No increased work of breathing, no retractions or nasal flaring. Abdomen/GI: Soft, non-tender, with normal bowel sounds. No distension or tympany. No guarding or rebound. No evidence of tenderness throughout. Skin: Warm, dry with normal turgor. Normal color with no rashes, no lesions, and no evidence of cellulitis. MS/ Extremity: Pulses equal, no cyanosis. Neurovascular intact. Full, normal range of motion. Neuro: Awake and alert, GCS 15, oriented to person, place, time, and situation. Cranial nerves II-XII grossly intact. Motor strength 5/5 in all extremities. Sensory grossly intact. Cerebellar exam normal. Normal gait. Vital Signs: 17:31 BP 145 / 90; Pulse 74; Resp 16 S; Temp 97.8(TE); Pulse Ox 98% on R/A; Weight 81.65 kg ca1 (R); Height 5 ft. 10 in. (177.80 cm) (R); 18:00 BP 131 / 96; Pulse 88; Resp 18; Pulse Ox 99% on R/A; zb 19:00 BP 125 / 92; Pulse 57; Resp 18; Pulse Ox 100% on R/A; zb 17:31 Body Mass Index 25.83 (81.65 kg, 177.80 cm) ca1 MDM: 17:37 Patient medically screened. kb 19:34 Data reviewed: vital signs, nurses notes. Data interpreted: Pulse oximetry: on room air kb is 100 %. Interpretation: normal. Counseling: I had a detailed discussion with the patient and/or guardian regarding: the historical points, exam findings, and any diagnostic results supporting the discharge/admit diagnosis, lab results, the need for outpatient follow up, a family practitioner, to return to the emergency department if symptoms worsen or persist or if there are any questions or concerns that arise at home. 06/16 17:37 Order name: Basic Metabolic Panel; Complete Time: 19:27 kb 06/16 17:37 Order name: CBC with Diff; Complete Time: 19:27 kb 06/16 17:37 Order name: Hepatic Function; Complete Time: 19:27 kb 06/16 17:37 Order name: Lipase; Complete Time: 19:27 kb 06/16 17:37 Order name: IV Saline Lock; Complete Time: 18:16 kb 06/16 17:37 Order name: Labs collected and sent; Complete Time: 18:22 kb Administered Medications: 19:50 Drug: Bentyl 20 mg Route: PO; zb 19:51 Follow up: Response: Medication administered at discharge. zb 19:50 Drug: Zofran (Ondansetron) 4 mg Route: IVP; Site: right antecubital; zb 19:51 Follow up: Response: Medication administered at discharge. zb Disposition: 06/17 07:01 Co-signature as Attending Physician, Alban Carrillo MD I agree with the assessment and osiel plan of care. Disposition: 06/16/20 19:35 Discharged to Home. Impression: Other abdominal pain - cramps. - Condition is Stable. - Discharge Instructions: Viral Gastroenteritis, Adult, [id number], COVID-19. - Prescriptions for Bentyl 20 mg Oral Tablet - take 1 tablet by ORAL route every 6 hours As needed; 20 tablet. Zofran 4 mg Oral Tablet - take 1 tablet by ORAL route every 6 hours As needed; 20 tablet. - Medication Reconciliation Form, Thank You Letter, Antibiotic Education, Prescription Opioid Use form. - Follow up: Emergency Department; When: As needed; Reason: Worsening of condition. Follow up: Private Physician; When: 2 - 3 days; Reason: Recheck today's complaints, Continuance of care, Re-evaluation by your physician. Signatures: Dispatcher [employer] Sofía Read, EVELYN CENTENO-Alban Rhodes MD MD cha Acob, Cheryl RN Ciara Myers RN RN zb Corrections: (The following items were deleted from the chart) 06/16 19:53 19:35 06/16/2020 19:35 Discharged to Home. Impression: Other abdominal pain - cramps. zb Condition is Stable. Forms are Medication Reconciliation Form, Thank You Letter, Antibiotic Education, Prescription Opioid Use. Follow up: Emergency Department; When: As needed; Reason: Worsening of condition. Follow up: Private Physician; When: 2 - 3 days; Reason: Recheck today's complaints, Continuance of care, Re-evaluation by your physician. kb
[2020-06-16] MEDS ORDERED: ONDANSETRON 4 MG/2 ML VIAL ONE (19:53)
[2020-06-16] MEDS ORDERED: DICYCLOMINE HCL 10 MG CAP ONE (19:53)
[2020-06-16 20:15] VITALS: TEMP 97.8
[2020-06-16 20:17] VITALS: BP 125/92; O2SAT 100
== END 2020-06-16 19:53 | disposition home or self-care (01) ==
LOC: ER 17:23
DX: R10.9 Unspecified abdominal pain (principal); I10 Essential (primary) hypertension; Z86.19 Personal history of other infectious and parasitic diseases
CPT/HCPCS: 85025; 80048; 36415; 80076; 83690; 96374; 99283; J2405

== ENCOUNTER 2021-02-28 13:33 | Emergency (ER) | payer BC ==
--- NOTE | 2021-02-28 14:06 | EDPHYS ---
Physician Documentation [facility] Name: Selvin Burks Age: 40 yrs Sex: Male : 1980 Arrival Date: 02/28/2021 Time: 13:34 Bed Waiting Private MD: NADINE Physician Alban Carrillo HPI: 02/28 14:08 This 40 yrs old Male presents to ER via Ambulatory with complaints of jr8 Shingles. 14:08 This is a 40-year-old male that presented to the emergency room with rash to the left jr8 back region. Concerned that he may have shingles. Burning in nature with sensitivity to touch. Patient stated that it started and thought it was a heat rash initially but after researching thought it may be shingles.. Historical: - Allergies: 13:53 NKA; aa5 - Home Meds: 13:53 simvastatin 20 mg Oral tab 1 tab once daily [Active]; lisinopril 10 mg Oral tab once aa5 daily [Active]; citalopram 20 mg tab 1 tab once daily [Active]; - PMHx: 13:53 Anxiety; Depression; Hyperlipidemia; Hypertension; aa5 - PSHx: 13:53 Appendectomy; aa5 - Immunization history:: Client reports receiving the 2nd dose of the Covid vaccine. - Social history:: Smoking status: Patient denies any tobacco usage or history of. ROS: 14:08 Constitutional: Negative for fever, chills, and weight loss, Cardiovascular: Negative jr8 for chest pain, palpitations, and edema, Respiratory: Negative for shortness of breath, cough, wheezing, and pleuritic chest pain, Abdomen/GI: Negative for abdominal pain, nausea, vomiting, diarrhea, and constipation, Neuro: Negative for headache, weakness, numbness, tingling, and seizure. 14:08 Skin: Positive for rash. 14:08 All other systems are negative. Exam: 14:08 Constitutional: This is a well developed, well nourished patient who is awake, alert, jr8 and in no acute distress. Cardiovascular: Regular rate and rhythm with a normal S1 and S2. No gallops, murmurs, or rubs. Normal PMI, no JVD. No pulse deficits. Respiratory: Lungs have equal breath sounds bilaterally, clear to auscultation and percussion. No rales, rhonchi or wheezes noted. No increased work of breathing, no retractions or nasal flaring. MS/ Extremity: Pulses equal, no cyanosis. Neurovascular intact. Full, normal range of motion. Neuro: Awake and alert, GCS 15, oriented to person, place, time, and situation. Motor strength 5/5 in all extremities. Sensory grossly intact. 14:08 Skin: Patient has vesicular erythematic clustered rash to the left mid back consistent with shingles. Unilateral in origin without extension into midline.. Vital Signs: 13:52 BP 138 / 98; Pulse 76; Resp 16 S; Temp 97.0(TE); Pulse Ox 100% on R/A; Weight 81.65 kg aa5 (R); Height 5 ft. 10 in. (177.80 cm) (R); Pain 6/10; 13:52 Body Mass Index 25.83 (81.65 kg, 177.80 cm) aa5 MDM: 14:05 Patient medically screened. jr8 14:08 Data reviewed: vital signs, nurses notes, and as a result, I will discharge patient. jr8 Data interpreted: Pulse oximetry: on room air is 100 %. Interpretation: normal. Counseling: I had a detailed discussion with the patient and/or guardian regarding: the historical points, exam findings, and any diagnostic results supporting the discharge/admit diagnosis, the need for outpatient follow up, a family practitioner, to return to the emergency department if symptoms worsen or persist or if there are any questions or concerns that arise at home. Administered Medications: No medications were administered Disposition: 03/01 06:40 Co-signature as Attending Physician, Alban Carrillo MD I agree with the assessment and osiel plan of care. Disposition Summary: 02/28/21 14:05 Discharge Ordered Location: Home jr8 Problem: new jr8 Symptoms: have improved jr8 Condition: Stable jr8 Diagnosis - Herpes Zoster jr8 Followup: jr8 - With: Private Physician - When: 5 - 6 days - Reason: Recheck today's complaints, Continuance of care, Re-evaluation by your physician Discharge Instructions: - Discharge Summary Sheet jr8 - Shingles jr8 Forms: - Medication Reconciliation Form jr8 - Thank You Letter jr8 - Antibiotic Education jr8 - Prescription Opioid Use jr8 Prescriptions: - Acyclovir 800 mg Oral Tablet - take 1 tablet by ORAL route 5 times per day for 7 days; 35 tablet; Refills: 0, jr8 Product Selection Permitted Signatures: Alban Carrillo MD MD cha Calderon, Audri RN RN aa5 Preston Soto PA PA jr8
--- NOTE | 2021-02-28 14:06 | ER ---
Nurse's Notes [facility] Name: Selvin Burks Age: 40 yrs Sex: Male : 1980 Arrival Date: 02/28/2021 Time: 13:34 Bed Waiting Private MD: Diagnosis: Herpes Zoster Presentation: 02/28 13:52 Chief complaint: Patient states: "I have shingles and I just need something to relieve aa5 the pain". Coronavirus screen: At this time, the client does not indicate any symptoms associated with coronavirus-19. Ebola Screen: Patient negative for fever greater than or equal to 101.5 degrees Fahrenheit, and additional compatible Ebola Virus Disease symptoms. Initial Sepsis Screen: Does the patient meet any 2 criteria? No. Patient's initial sepsis screen is negative. Does the patient have a suspected source of infection? No. Patient's initial sepsis screen is negative. Risk Assessment: Do you want to hurt yourself or someone else? Patient reports no desire to harm self or others. Onset of symptoms was February 2021. 13:52 Method Of Arrival: Ambulatory aa5 13:52 Acuity: CORIE 5 aa5 Historical: - Allergies: 13:53 NKA; aa5 - Home Meds: 13:53 simvastatin 20 mg Oral tab 1 tab once daily [Active]; lisinopril 10 mg Oral tab once aa5 daily [Active]; citalopram 20 mg tab 1 tab once daily [Active]; - PMHx: 13:53 Anxiety; Depression; Hyperlipidemia; Hypertension; aa5 - PSHx: 13:53 Appendectomy; aa5 - Immunization history:: Client reports receiving the 2nd dose of the Covid vaccine. - Social history:: Smoking status: Patient denies any tobacco usage or history of. Assessment: 14:12 Reassessment: Patient is alert, oriented x 3, equal unlabored respirations, skin aa5 warm/dry/pink. Vital Signs: 13:52 BP 138 / 98; Pulse 76; Resp 16 S; Temp 97.0(TE); Pulse Ox 100% on R/A; Weight 81.65 kg aa5 (R); Height 5 ft. 10 in. (177.80 cm) (R); Pain 6/10; 13:52 Body Mass Index 25.83 (81.65 kg, 177.80 cm) aa5 ED Course: 13:34 Patient arrived in ED. ds1 13:52 Arm band placed on. aa5 13:53 Triage completed. aa5 14:04 Preston Soto PA is PHCP. jr8 14:04 Alban Carrillo MD is Attending Physician. jr8 14:12 No provider procedures requiring assistance completed. Patient did not have IV access aa5 during this emergency room visit. Administered Medications: No medications were administered Outcome: 14:05 Discharge ordered by . jr8 14:12 Discharged to home ambulatory. aa5 14:12 Condition: stable 14:12 Discharge instructions given to patient, Instructed on discharge instructions, follow up and referral plans. medication usage, Demonstrated understanding of instructions, follow-up care, medications, Prescriptions given X 1. 14:12 Patient left the ED. aa5 Signatures: Elva Oleary ds1 Karishma Don, RN RN aa5 Preston Soto PA PA jr8
[2021-02-28 14:22] VITALS: BP 138/98; TEMP 97; O2SAT 100
== END 2021-02-28 14:12 | disposition home or self-care (01) ==
LOC: ER 13:33
DX: B02.9 Zoster without complications (principal); I10 Essential (primary) hypertension; E78.5 Hyperlipidemia, unspecified; F41.8 Other specified anxiety disorders
CPT/HCPCS: 99282

== ENCOUNTER 2022-05-15 12:37 | Emergency (ER) | payer BC ==
--- OUTSIDE RECORDS SUMMARY | 2022-05-15 12:42 | XMS REPORT | Continuity of Care Document ---
:1980 Author Organization [facility] t Address [address] [place] [address] Care Team Providers Name Role Phone Frances Brown Attending Clinician Unavailable Payers Payer Name Policy Type Policy Number Effective Date Expiration Date S avani [employer] 6 [id number] Common Spiri t Blue [facility] Center Problems Condition Condition Condition Status Onset Resolution Last Treating Co mments Source Name Details Category Date Date Treatment Clinician Date [id number] Pure Problem Active Common hyperchole Spirit sterolemia - [facility] Hypertensi HTN Problem Active Commo n on (hypertens Spirit ion) [facility] [id number] Vitamin D Problem Active Comm on deficiency [facility] [id number] Seasonal Problem Active Comm on allergic Spirit rhinitis, - [facility] [id number] Asthma, Problem Active Commo n unspecifie Spirit d asthma - [facility] severity, [facility] unspecifie [facility] d whether Medical complicate Center d, unspecifie d whether persistent Anxiety Anxiety Problem Active Common Spirit - [facility] Allergic Allergic Problem Active Commo n rhinitis rhinitis [facility] [id number] Acute Problem Active Common gingival Spirit inflammati - [facility] on [facility] [id number] Adult Problem Active Common general Spirit medical - [facility] examinatio [facility] Allergies, Adverse Reactions, Alerts This patient has no known allergies or adverse reactions. Social History Social Habit Start Date Stop Date Quantity Comments Source History of Tobacco Use Co mmon [facility] Sex Assigned At Com mon [facility] Smoking Status Start Date Stop Date Source Never Smoker Common [facility] Medications Ordered Filled Start Stop Current Ordering Indication Dosage Frequency Signature Comments Components Source Medication Medication Date Date Medication? Clinician (SIG) Name Name Doxycycline Doxycycline Yes Na Brown 1 capsule Common Hyclate Hyclate 4-25 Spirit 00:00: - [facility] Flonase Flonase Yes Na Brown 2 sprays Common 4-25 each Spirit 00:00: nostril - [facility] prn [facility] Flonase 50 Flonase 50 No QD Flonase 50 MCG/ACT MCG/ACT 4-25 MCG/ACT 00:00: 00 Doxycycline Doxycycline No 1{capsu BID Doxycyclin Hyclate 100 Hyclate 100 4-25 le} e Hyclate mg mg 00:00: 100 mg 00 Flonase 50 Flonase 50 No QD Flonase 50 MCG/ACT MCG/ACT 4-25 MCG/ACT 00:00: 00 Doxycycline Doxycycline No 1{capsu BID Doxycyclin Hyclate 100 Hyclate 100 4-25 le} e Hyclate mg mg 00:00: 100 mg 00 Doxycycline Doxycycline No 1{capsu BID Doxycyclin Hyclate 100 Hyclate 100 4-25 le} e Hyclate mg mg 00:00: 100 mg 00 Flonase 50 Flonase 50 No QD Flonase 50 MCG/ACT MCG/ACT 4-25 MCG/ACT 00:00: 00 Kenalog Kenalog No 40mg Common (Triamcinol (Triamcinol 4-04 S pirit one) one) 00:00: - [facility] Simvastatin Simvastatin No Simvastati 20 MG 20 MG n 20 MG valACYclovi valACYclovi No 1{table BID valACYclov r HCl 1 GM r HCl 1 GM t} ir HCl 1 GM Citalopram Citalopram No Citalopram Hydrobromid Hydrobromid Hydrobromi e 20 MG e 20 MG de 20 MG Augmentin Augmentin No 1{table BID Augmentin 875-125 MG 875-125 MG t} 875-125 MG Lisinopril Lisinopril Yes Na Brown 1 tablet Common [facility] Simvastatin Simvastatin Yes Na Brown 1 tablet Common in the [facility] Augmentin Augmentin Yes Na Brown 1 tablet Common [facility] ProAir HFA ProAir HFA Yes Na Brown 2 puffs as Common needed [facility] Citalopram Citalopram Yes Na Brown TAKE ONE Common Hydrobromid Hydrobromid TABLET BY [facility] e e MOUTH - [facility] DAILY [facility] Loratadine Loratadine Yes Na Brown 1 tablet Common [facility] Lisinopril Lisinopril Yes Na Brown TAKE ONE Common TABLET BY [facility] MOUTH - [facility] DAILY [facility] Citalopram Citalopram Yes Na Brown 1 tablet Common Hydrobromid Hydrobromid S pirit e e - [facility] Simvastatin Simvastatin Yes Na Brown 1 tablet Common in the [facility] evening [facility] Zocor Zocor Yes Na Brown TAKE ONE Common TABLET BY [facility] MOUTH - [facility] EVERY [facility] Citalopram Citalopram No 1{table QD Citalopram Hydrobromid Hydrobromid t} Hydrobromi e 20 MG e 20 MG de 20 MG Loratadine Loratadine No 1{table QD Loratadine 10 MG 10 MG t} 10 MG Citalopram Citalopram No Citalopram Hydrobromid Hydrobromid Hydrobromi e 20 MG e 20 MG de 20 MG Simvastatin Simvastatin No Simvastati 20 MG 20 MG n 20 MG ProAir HFA ProAir HFA No 2{puffs QID ProAir HFA 108 (90 108 (90 _as_nee 108 (90 Base) Base) ded} Base) MCG/ACT MCG/ACT MCG/ACT Lisinopril Lisinopril No 1{table QD Lisinopril 10 MG 10 MG t} 10 MG Simvastatin Simvastatin No 1{table QD Simvastati 20 MG 20 MG t_in_th n 20 MG e_eveni ng} Azelastine Azelastine No 1{drop_ Azelastine HCl 0.05 % HCl 0.05 % into_af HCl 0.05 % fected_ eye} Loratadine Loratadine No Loratadine 10 MG 10 MG 10 MG Augmentin Augmentin No 1{table BID Augmentin 875-125 MG 875-125 MG t} 875-125 MG Lisinopril Lisinopril No Lisinopril 10 MG 10 MG 10 MG Zocor 20 MG Zocor 20 MG No Zocor 20 MG Citalopram Citalopram No 1{table QD Citalopram Hydrobromid Hydrobromid t} Hydrobromi e 20 MG e 20 MG de 20 MG Loratadine Loratadine No 1{table QD Loratadine 10 MG 10 MG t} 10 MG Citalopram Citalopram No Citalopram Hydrobromid Hydrobromid Hydrobromi e 20 MG e 20 MG de 20 MG Simvastatin Simvastatin No Simvastati 20 MG 20 MG n 20 MG ProAir HFA ProAir HFA No 2{puffs QID ProAir HFA 108 (90 108 (90 _as_nee 108 (90 Base) Base) ded} Base) MCG/ACT MCG/ACT MCG/ACT Lisinopril Lisinopril No 1{table QD Lisinopril 10 MG 10 MG t} 10 MG Simvastatin Simvastatin No 1{table QD Simvastati 20 MG 20 MG t_in_th n 20 MG e_eveni ng} Azelastine Azelastine No 1{drop_ Azelastine HCl 0.05 % HCl 0.05 % into_af HCl 0.05 % fected_ eye} Loratadine Loratadine No Loratadine 10 MG 10 MG 10 MG Augmentin Augmentin No 1{table BID Augmentin 875-125 MG 875-125 MG t} 875-125 MG Lisinopril Lisinopril No Lisinopril 10 MG 10 MG 10 MG Zocor 20 MG Zocor 20 MG No Zocor 20 MG Zocor 20 MG Zocor 20 MG No Zocor 20 MG Simvastatin Simvastatin No 1{table QD Simvastati 20 MG 20 MG t_in_th n 20 MG e_eveni ng} ProAir HFA ProAir HFA No 2{puffs QID ProAir HFA 108 (90 108 (90 _as_nee 108 (90 Base) Base) ded} Base) MCG/ACT MCG/ACT MCG/ACT Citalopram Citalopram No 1{table QD Citalopram Hydrobromid Hydrobromid t} Hydrobromi e 20 MG e 20 MG de 20 MG Loratadine Loratadine No Loratadine 10 MG 10 MG 10 MG Lisinopril Lisinopril No 1{table QD Lisinopril 10 MG 10 MG t} 10 MG Azelastine Azelastine No 1{drop_ Azelastine HCl 0.05 % HCl 0.05 % into_af HCl 0.05 % fected_ eye} Lisinopril Lisinopril No Lisinopril 10 MG 10 MG 10 MG Loratadine Loratadine No 1{table QD Loratadine 10 MG 10 MG t} 10 MG Immunizations Ordered Immunization Filled Immunization Date Status Commen ts Source Name Name Flucelvax - Flucelvax - 2019-03-23 Completed Common Spiri t multidose vial multidose vial 13:55:00 - [facility] Flucelvax - Flucelvax - 2019-03-23 Completed Common Spiri t multidose vial multidose vial 13:55:00 - [facility] Flucelvax - Flucelvax - 2019-03-23 Completed Common Spiri t multidose vial multidose vial 13:55:00 - [facility] Flucelvax - Flucelvax - 2019-03-23 Completed Common Spiri t multidose vial multidose vial 00:00:00 - [facility] Td Td 2018-12-19 Completed [facility] 13:07:00 - [facility] Td Td 2018-12-19 Completed [facility] 13:07:00 - [facility] Td Td 2018-12-19 Completed Common [facility] 13:07:00 [facility] Td Td 2018-12-19 Completed Common [facility] 00:00:00 [facility] Vital Signs Vital Name Observation Time Observation Value Comments Source height 2021-10-03 14:00:00 69.00 [in_i] Common S pirit [facility] weight 2021-10-03 14:00:00 191.8 [lb_av] Common [facility] temperature 2021-10-03 14:00:00 97.7 [degF] Common S pirit [facility] bmi 2021-10-03 14:00:00 28.32 kg/m2 Common S [facility] oximetry 2021-10-03 14:00:00 93 % Common S [facility] respiratory rate 2021-10-03 14:00:00 16 /min Comm on [facility] blood pressure 2021-10-03 14:00:00 124 mm[Hg] Common Spirit - systolic [facility] blood pressure 2021-10-03 14:00:00 82 mm[Hg] Common [facility] - diastolic [facility] height 2021-08-01 13:40:00 69.00 [in_i] Common [facility] weight 2021-08-01 13:40:00 189.2 [lb_av] Common [facility] temperature 2021-08-01 13:40:00 97.6 [degF] Common S [facility] bmi 2021-08-01 13:40:00 27.94 kg/m2 Common S [facility] oximetry 2021-08-01 13:40:00 98 % Common S [facility] respiratory rate 2021-08-01 13:40:00 16 /min Comm on [facility] blood pressure 2021-08-01 13:40:00 122 mm[Hg] Common [facility] - systolic [facility] blood pressure 2021-08-01 13:40:00 68 mm[Hg] Common [facility] diastolic [facility] Procedures This patient has no known procedures. Encounters Start End Encounter Admission Attending Care Care Encounter Source Date/Time Date/Time Type Type Clinicians Facility Department ID 2021-08-01 Outpatient Frances Brown [facility] [id number] Common 13:32:00 [id number] [facility] 2021-07-12 Outpatient Frances Brown [facility] [id number] Common 12:21:22 [id number] [facility] 2021-07-12 Outpatient Brown, Na STLMLC STLMLC [id number] Common 11:27:54 [id number] [facility] 2021-07-12 Outpatient Brown, Na STLMLC STLMLC [id number] Common 11:27:25 [id number] [facility] 2021-07-12 Outpatient Brown, Na STLMLC STLMLC [id number] Common 10:58:22 [id number] [facility] 2021-10-03 2021-10-03 PREV VISIT STLMLC STLMLC [id number] Common 00:00:00 00:00:00 EST AGE [facility] 18-39 - [facility] 2021-08-04 2021-08-04 (TEL) STLMLC STLMLC [id number] Co mmon 00:00:00 00:00:00 [facility] 2021-08-01 2021-08-01 OFFICE STLMLC STLMLC [id number] Co mmon 00:00:00 00:00:00 VISIT [facility] PT - [facility] LEVEL 4 [facility] 2020-06-30 2020-06-30 Outpatient STLMLC STLMLC [id number] Common 00:00:00 00:00:00 [facility] 2019-12-08 2019-12-08 [id number] Common 11:20:00 11:20:[address] [facility] 2019-11-12 2019-11-12 [facility] [id number] Common 16:40:00 16:40:00 [place] [address] [facility] 2019-03-23 2019-03-23 [facility] [id number] Common 13:00:00 13:00:00 [place] [address] [facility] 2018-12-19 2018-12-19 [facility] [id number] Common 13:00:00 13:00:00 [place] [address] [facility] 2018-10-09 2018-10-09 [facility] [id number] Common 14:15:00 14:15:00 t Urgent Urgent Care S pirit Care [facility] 2018-09-18 2018-09-18 [facility] [id number] Common 15:00:00 15:00:00 t [employer] [address] [facility] 2018-09-13 2018-09-13 [facility] [id number] Common 16:12:00 16:12:00 t [place] [facility] 2018-09-07 2018-09-07 [facility] [id number] Common 12:00:00 12:00:00 t Urgent Urgent Care S pirit Care [facility] 2018-06-24 2018-06-24 [facility] [id number] Common 15:15:00 15:15:00 t Specialty/U Sp heidi Specialty rology - [facility] /Urology Clinic [facility] 2018-06-11 2018-06-11 [facility] [id number] Common 14:02:00 14:02:00 t Specialty/U Sp heidi Specialty rology - [facility] /Urology Clinic [facility] 2018-06-09 2018-06-09 [facility] [id number] Common 09:45:00 09:45:00 t Urgent Urgent Care S pirit Care [facility] 2018-02-04 2018-02-04 [facility] [id number] Common 11:45:00 11:45:[address] [employer] [address] [facility] Results This patient has no known results.
[2022-05-15 13:15] LABS: Absolute Lymphocytes (CBC) 1.4 K/uL (0.7-4.9); Hematocrit 44.8 % (39.6-49.0); Lymphocytes % 26.8 % (15.3-44.8); MCV 86.2 fL (80-100); MPV 6.7 fL (7.6-11.3); RBC Red Blood Cell Count 5.19 M/uL (4.33-5.43)
[2022-05-15 13:31] LABS: Potassium 3.7 mmol/L (3.5-5.1)
--- NOTE | 2022-05-15 13:47 | RAD REPORT ---
EXAM DESCRIPTION: RAD - Chest Single View - 05/15/2022 1:18 pm CLINICAL HISTORY: CHEST PAIN Chest pain. COMPARISON: No comparisons FINDINGS: Portable technique limits examination quality. The lungs are grossly clear. The heart is normal in size. No displaced fractures. IMPRESSION: No acute intrathoracic process suspected.
--- NOTE | 2022-05-15 13:53 | ER ---
Nurse's Notes [facility] Name: Selvin Burks Age: 41 yrs Sex: Male : 1980 Arrival Date: 05/15/2022 Time: 12:40 Bed 17 Private MD: Diagnosis: Essential (primary) hypertension Presentation: 05/15 12:41 Chief complaint: Patient states: Reporting blood pressure being high since Thanksgiving ld1 due to being out of Lisinopril. Coronavirus screen: At this time, the client does not indicate any symptoms associated with coronavirus-19. Ebola Screen: No symptoms or risks identified at this time. Initial Sepsis Screen: Does the patient meet any 2 criteria? No. Patient's initial sepsis screen is negative. Does the patient have a suspected source of infection? No. Patient's initial sepsis screen is negative. Risk Assessment: Do you want to hurt yourself or someone else? Patient reports no desire to harm self or others. Onset of symptoms was May 15, 2022. 12:41 Method Of Arrival: Ambulatory ld1 12:41 Acuity: CORIE 4 ld1 Triage Assessment: 12:45 General: Appears in no apparent distress. comfortable, Behavior is calm, cooperative, ld1 appropriate for age. Pain: Denies pain. EENT: No signs and/or symptoms were reported regarding the EENT system. Neuro: Level of Consciousness is awake, alert, obeys commands, Oriented to person, place, time, situation. Cardiovascular: Capillary refill < 3 seconds Patient's skin is warm and dry. Respiratory: Airway is patent Respiratory effort is even, unlabored. GI: Abdomen is flat, non-distended. : No signs and/or symptoms were reported regarding the genitourinary system. Derm: No signs and/or symptoms reported regarding the dermatologic system. Musculoskeletal: No signs and/or symptoms reported regarding the musculoskeletal system. Historical: - Allergies: 12:45 NKA; ld1 - Home Meds: 12:45 lisinopril 10 mg Oral tab once daily [Active]; citalopram 20 mg tab 1 tab once daily ld1 [Active]; simvastatin 20 mg Oral tab 1 tab once daily [Active]; - PMHx: 12:45 Anxiety; Depression; Hyperlipidemia; Hypertension; ld1 - PSHx: 12:45 Appendectomy; ld1 - Immunization history:: Adult Immunizations up to date, Client reports receiving the 2nd dose of the Covid vaccine. - Social history:: Smoking status: Patient denies any tobacco usage or history of. Patient/guardian denies using alcohol. Screenin:10 Abuse screen: Denies threats or abuse. Denies injuries from another. Nutritional kc6 screening: No deficits noted. Tuberculosis screening: No symptoms or risk factors identified. Fall Risk No fall in past 12 months (0 pts). No secondary diagnosis (0 pts). IV access (20 points). Ambulatory Aid- None/Bed Rest/Nurse Assist (0 pts). Gait- Normal/Bed Rest/Wheelchair (0 pts) Mental Status- Oriented to own ability (0 pts). Total Caceres Fall Scale indicates No Risk (0-24 pts). Assessment: 13:09 General: Appears in no apparent distress. comfortable, Behavior is calm, cooperative, kc6 appropriate for age. Pain: Denies pain. Neuro: Polanco Agitation-Sedation Scale (RASS): 0 - Alert and Calm Level of Consciousness is awake, alert, obeys commands, Oriented to person, place, time, situation, Appropriate for age. Cardiovascular: Heart tones S1 S2 present Capillary refill < 3 seconds. Respiratory: Airway is patent Trachea midline Respiratory effort is even, unlabored, Respiratory pattern is regular, symmetrical, Breath sounds are clear bilaterally. GI: No signs and/or symptoms were reported involving the gastrointestinal system. : No signs and/or symptoms were reported regarding the genitourinary system. EENT: No signs and/or symptoms were reported regarding the EENT system. Derm: No signs and/or symptoms reported regarding the dermatologic system. Skin is intact, Skin is pink, warm \T\ dry. Musculoskeletal: No signs and/or symptoms reported regarding the musculoskeletal system. Circulation, motion, and sensation intact. Capillary refill < 3 seconds, Range of motion: intact in all extremities. 14:08 Reassessment: Patient appears in no apparent distress at this time. No changes from kc6 previously documented assessment. Patient and/or family updated on plan of care and expected duration. Pain level reassessed. Patient is alert, oriented x 3, equal unlabored respirations, skin warm/dry/pink. Patient denies pain at this time. Vital Signs: 12:41 Pulse 69; Resp 18; Temp 98.0(O); Pulse Ox 100% on R/A; Weight 83.91 kg; Height 5 ft. 10 ld1 in. (177.80 cm); Pain 0/10; 12:46 BP 146 / 107; ld1 13:10 BP 130 / 107; Pulse 72; Resp 15 S; Pulse Ox 96% on R/A; Pain 0/10; kc6 14:08 BP 124 / 103; Pulse 64; Resp 12 S; Pulse Ox 96% on R/A; Pain 0/10; kc6 12:41 Body Mass Index 26.54 (83.91 kg, 177.80 cm) ld1 ED Course: 12:40 Patient arrived in ED. rg4 12:40 Sofía [facility]C [facility]. kb 12:40 Venancio Wall MD is Attending Physician. kb 12:45 Triage completed. ld1 12:45 Arm band placed on right wrist. ld1 12:50 Leanne Goldman RN is Primary Nurse. kc6 13:09 Basic Metabolic Panel Sent. kc6 13:09 CBC with Diff Sent. kc6 13:09 Inserted saline lock: 20 gauge in left antecubital area, using aseptic technique. Blood kc6 collected. 13:10 Patient has correct armband on for positive identification. Bed in low position. Call kc6 light in reach. Side rails up X 1. 13:20 Chest Single View XRAY In Process Unspecified. EDMS 14:14 No provider procedures requiring assistance completed. IV discontinued, intact, kc6 bleeding controlled, No redness/swelling at site. Pressure dressing applied. Administered Medications: No medications were administered Medication: 14:15 VIS not applicable for this client. kc6 Outcome: 13:52 Discharge ordered by . kb 14:15 Discharged to home ambulatory. kc6 14:15 Condition: stable 14:15 Discharge instructions given to patient, Instructed on discharge instructions, follow up and referral plans. Demonstrated understanding of instructions, follow-up care. 14:15 Patient left the ED. kc6 Signatures: Dispatcher [employer] EDMS Sofía Burr FNP-C FNP-Melissa Meyer rg4 Paris Elise RN RN ld1 Leanne Goldman RN RN kc6
--- NOTE | 2022-05-15 13:53 | EDPHYS ---
Physician Documentation [facility] Name: Selvin Burks Age: 41 yrs Sex: Male : 1980 Arrival Date: 05/15/2022 Time: 12:40 Bed 17 Private MD: NADINE Physician Venancio Wall HPI: 05/15 13:50 This 41 yrs old Male presents to ER via Ambulatory with complaints of High Blood kb Pressure. 13:50 The patient has elevated blood pressure and discovered this at home, with a home kb device. Onset: The symptoms/episode began/occurred 4 day(s) ago. Modifying factors: The symptoms are aggravated by discontinuation of meds, BYRON-inhibitor. Associated signs and symptoms: Pertinent positives: chest pain, headache, Pertinent negatives: dizziness, dyspnea, lightheadedness, nausea, visual changes, vomiting, weakness. Severity of symptoms: At its worst the blood pressure was 170 mm Hg. The patient has experienced similar episodes in the past, a few times. The patient has been recently seen by a physician:. Pt reports his bp has been high for the last few days because he ran out of lisinopril. States he was able to get a new prescription yesterday and took a dose last night, but it was still high this morning. States he has been under stress at work so that could be influencing it as well. . Historical: - Allergies: 12:45 NKA; ld1 - Home Meds: 12:45 lisinopril 10 mg Oral tab once daily [Active]; citalopram 20 mg tab 1 tab once daily ld1 [Active]; simvastatin 20 mg Oral tab 1 tab once daily [Active]; - PMHx: 12:45 Anxiety; Depression; Hyperlipidemia; Hypertension; ld1 - PSHx: 12:45 Appendectomy; ld1 - Immunization history:: Adult Immunizations up to date, Client reports receiving the 2nd dose of the Covid vaccine. - Social history:: Smoking status: Patient denies any tobacco usage or history of. Patient/guardian denies using alcohol. ROS: 13:50 Constitutional: Negative for fever, chills, and weight loss. kb 13:50 Cardiovascular: Positive for chest pain, Negative for edema, orthopnea, palpitations, paroxysmal nocturnal dyspnea. 13:50 Neuro: Positive for headache. 13:50 Psych: Positive for anxiety. 13:50 All other systems are negative. Exam: 13:03 Constitutional: This is a well developed, well nourished patient who is awake, alert, kb and in no acute distress. Head/Face: Normocephalic, atraumatic. ENT: Moist Mucous membranes Cardiovascular: Regular rate and rhythm with a normal S1 and S2. No gallops, murmurs, or rubs. No pulse deficits. Respiratory: Respirations even and unlabored. No increased work of breathing. Talking in full sentences Abdomen/GI: Soft, non-tender. No distention Skin: Warm, dry with normal turgor. Normal color. MS/ Extremity: Pulses equal, no cyanosis. Neurovascular intact. Full, normal range of motion. Neuro: Awake and alert, GCS 15, oriented to person, place, time, and situation. Moves all extremities. Normal gait. Psych: Awake, alert, with orientation to person, place and time. Behavior, mood, and affect are within normal limits. 13:03 ECG was reviewed by the Attending Physician. Vital Signs: 12:41 Pulse 69; Resp 18; Temp 98.0(O); Pulse Ox 100% on R/A; Weight 83.91 kg; Height 5 ft. 10 ld1 in. (177.80 cm); Pain 0/10; 12:46 BP 146 / 107; ld1 13:10 BP 130 / 107; Pulse 72; Resp 15 S; Pulse Ox 96% on R/A; Pain 0/10; kc6 14:08 BP 124 / 103; Pulse 64; Resp 12 S; Pulse Ox 96% on R/A; Pain 0/10; kc6 12:41 Body Mass Index 26.54 (83.91 kg, 177.80 cm) ld1 MDM: 12:40 Patient medically screened. kb 13:37 Data reviewed: vital signs, nurses notes. Data interpreted: Pulse oximetry: on room air kb is 96 %. Interpretation: normal. Counseling: I had a detailed discussion with the patient and/or guardian regarding: the historical points, exam findings, and any diagnostic results supporting the discharge/admit diagnosis, lab results, radiology results, the need for outpatient follow up, a family practitioner, to return to the emergency department if symptoms worsen or persist or if there are any questions or concerns that arise at home. 05/15 12:50 Order name: CBC with Diff; Complete Time: 13:28 kb 05/15 12:50 Order name: Basic Metabolic Panel; Complete Time: 13:34 kb 05/15 12:50 Order name: IV Start; Complete Time: 13:09 kb 05/15 12:50 Order name: Troponin High Sensitivity; Complete Time: 13:34 kb 05/15 12:50 Order name: EKG; Complete Time: 12:50 kb 05/15 12:50 Order name: Chest Single View XRAY; Complete Time: 13:50 kb 05/15 12:50 Order name: EKG - Nurse/Tech; Complete Time: 12:57 kb EC:03 Rate is 75 beats/min. Rhythm is regular. QRS [place] is Normal. MO interval is normal at kb 200 msec. QRS interval is normal at 86 msec. QT interval is normal at 408 msec. Administered Medications: No medications were administered Disposition: 18:04 Co-signature as Attending Physician, Sofía RIVAS PA/WARP DOFFER's history reviewed, [id number] patient interviewed, and examined. Attestation: The patient's history, exam findings, diagnostics, and a summary of any interventions or procedures was reviewed in detail with Sofía RIVAS. Disposition Summary: 05/15/22 13:52 Discharge Ordered Location: Home kb Condition: Stable kb Diagnosis - Essential (primary) hypertension kb Followup: kb - With: Emergency Department - When: As needed - Reason: Worsening of condition Followup: kb - With: Private Physician - When: 2 - 3 days - Reason: Recheck today's complaints, Continuance of care, Re-evaluation by your physician Discharge Instructions: - Discharge Summary Sheet kb - Hypertension, Adult, [id number] kb Forms: - Medication Reconciliation Form kb - Thank You Letter kb - Antibiotic Education kb - Prescription Opioid Use kb Signatures: Dispatcher [employer] EDSofía Lyman FNP-C FNP-Ckb Dibbern, Lauren, RN RN ld1 Venancio Wall MD MD [id number]
[2022-05-15 14:24] VITALS: TEMP 98
[2022-05-15 14:26] VITALS: O2SAT 96
[2022-05-15 14:27] VITALS: BP 124/103
--- NOTE | 2022-05-16 16:27 | EKG ---
Test Date: 2022-05-15 Test Time: 12:54:41 Meteorological Technician: HOWARD MEASUREMENT RESULTS: Intervals: Rate: 75 [place]: 200 QRSD: 86 QT: 366 QTc: 408 [place]: P: 68 WV: 200 QRS: 47 T: 21 INTERPRETIVE STATEMENTS: Normal sinus rhythm Normal ECG Compared to ECG 12/03/2019 02:27:54 Myocardial infarct finding no longer present Electronically Signed On 05-16-22 16:23:12 COMMUTER TRAIN OPERATOR by Mike Woodall
== END 2022-05-15 14:15 | disposition home or self-care (01) ==
LOC: ER 12:37
DX: I10 Essential (primary) hypertension (principal); E78.5 Hyperlipidemia, unspecified
CPT/HCPCS: 36415; 71045; 80048; 84484; 85025; 93005; 99283